=== PATIENT | female | born 1950 | race Caucasian/White ===

== ENCOUNTER 2017-03-09 09:46 | Outpatient (CLI) | payer MEDICARE, MEDICAID ==
[~2017-03-09 09:46] MED LIST: ALBU8HFA PO; FAMO40TA7 PO; FURO-150 PO; LORA1TAB PO; LOSA25TA96 PO; SPIR25TA3 PO
[2017-03-09] MEDS ORDERED: HYDR-569 PO (10:34)
[2017-03-09] MEDS ORDERED: silver sulfadiazine cream 50gm TP ONE (11:07)
== END 2017-03-09 11:18 | disposition home or self-care (01) ==
LOC: WOUND CARE 09:46 → EDSTATUS 10:00 → WOUND CARE 11:18
PROVIDERS: ATTEND Surgery
DX: L97.811 Non-pressure chronic ulcer of other part of right lower leg limited to breakdown of skin (principal); J44.9 Chronic obstructive pulmonary disease, unspecified; I10 Essential (primary) hypertension; E66.01 Morbid (severe) obesity due to excess calories; M17.10 Unilateral primary osteoarthritis, unspecified knee; F41.9 Anxiety disorder, unspecified; Z90.49 Acquired absence of other specified parts of digestive tract; Z86.018 Personal history of other benign neoplasm; Z68.44 Body mass index [BMI] 60.0-69.9, adult; Z79.899 Other long term (current) drug therapy; Z72.89 Other problems related to lifestyle; Z87.891 Personal history of nicotine dependence
CPT/HCPCS: 99215; A6222; A6446

== ENCOUNTER 2021-01-17 17:48 | Emergency (ER) | payer MEDICARE, MEDICAID ==
[~2021-01-17] VITALS: Ht 157.5 cm; Wt 168.2 kg
[~2021-01-17 17:48] MED LIST changes: +HYDR-4383 PO; -SPIR25TA3 PO; +SPIR25TA5 PO
[2021-01-17 18:14] VITALS: BP 137/79
[2021-01-17 18:41] LABS: CLARITY,URINE SLIGHTLY CLOUDY (Clear); COLOR,URINE YELLOW (Yellow); GLUCOSE, URINE NEGATIVE (Neg); KETONES,URINE NEGATIVE (Neg); LEUKOCYTE ESTERASE ,URINE NEGATIVE (Neg); NITRITES, URINE POSITIVE (Neg); OCCULT BLOOD,URINE NEGATIVE (Neg); PH,URINE 6.5 (4.8-8.0); PROTEIN,URINE TRACE mg/dl (Neg)
[2021-01-17 18:46] LABS: UA COLLECTION TYPE CLN CATCH MIDSTREAM
[2021-01-17 18:47] LABS: BACTERIA,URINE 4+ /HPF (Neg); MUCUS STRANDS FEW /LPF (Neg); RBC,URINE 0-2 /HPF (0-2); SQUAMOUS EPITHELIAL CELL,UR FEW /LPF (FEW)
[2021-01-17 18:48] LABS: WBC,URINE 0-4 /HPF (0-4)
[2021-01-17] MEDS ORDERED: SULF1TAB49 PO (18:48)
[2021-01-17] MEDS ORDERED: CIPR-202 PO (19:20)
== END 2021-01-17 20:44 | disposition home or self-care (01) ==
LOC: ER 17:48
DX: N39.0 Urinary tract infection, site not specified (principal); R30.9 Painful micturition, unspecified; R30.0 Dysuria; M54.89 Other dorsalgia; G89.29 Other chronic pain; I10 Essential (primary) hypertension; Z98.890 Other specified postprocedural states; Z56.0 Unemployment, unspecified; Z88.6 Allergy status to analgesic agent; Z88.8 Allergy status to other drugs, medicaments and biological substances; Z79.2 Long term (current) use of antibiotics; Z79.899 Other long term (current) drug therapy
CPT/HCPCS: 81001; 87077; 87088; 87186; 99283

== ENCOUNTER 2022-03-20 08:46 | Emergency (ER) | payer MEDICARE, MEDICAID ==
[~2022-03-20] VITALS: Ht 152.4 cm; Wt 181.8 kg
[2022-03-20 09:03] VITALS: BP 145/83
[2022-03-20] MEDS ORDERED: acetaminophen 325mg tablet PO ONE (10:15)
[2022-03-20 10:44] LABS: BASOPHILS % (AUTO) 0.3 % (0-1); EOSINOPHILS % (AUTO) 0 % (0-6); HEMATOCRIT 39.3 % (35.0-45.0); HEMOGLOBIN 12.5 g/dl (12.0-16.0); LYMPHOCYTES # (AUTO) 0.5 X10'3 (1.1-4.8); LYMPHOCYTES % (AUTO) 7.7 % (21-51); MEAN CORPUSCULAR HEMOGLOBIN 29.5 PG (27.0-31.0); MEAN CORPUSCULAR HGB CONC 31.9 g/dL (33.0-36.5); MEAN CORPUSCULAR VOLUME 92.7 FL (78-98); MEAN PLATELET VOLUME 9.4 FL (7.4-10.4); MONOCYTES # (AUTO) 0.2 X10'3 (0-0.9); MONOCYTES % (AUTO) 2.5 % (2-12); NEUTROPHILS # (AUTO) 6.3 X10'3 (1.8-7.7); NEUTROPHILS % (AUTO) 89.5 % (42-75); PLATELET COUNT 235 X10'3 (140-440); RED BLOOD COUNT 4.24 X10'6 (4.20-5.60); RED CELL DISTRIBUTION WIDTH 16.6 % (11.5-14.5)
[2022-03-20 11:02] LABS: ALANINE AMINOTRANSFERASE 32 U/L (12-78); ALBUMIN 2.8 G/DL (3.4-5.0); ALBUMIN/GLOBULIN RATIO 0.8 (1.1-1.5); ALKALINE PHOSPHATASE 59 IU/L (46-116); ANION GAP 7 (8-16); ASPARTATE AMINO TRANSFERASE 17 U/L (10-37); BILIRUBIN,TOTAL 0.8 MG/DL (0.1-1.0); BLOOD UREA NITROGEN 18 MG/DL (7-18); BUN/CREATININE RATIO 31.6 (6.6-38.0); CALCIUM 9.2 MG/DL (8.5-10.1); CHLORIDE 103 MMOL/L (99-107); CREATININE 0.57 MG/DL (0.40-0.90); GLUCOSE 128 MG/DL (70-104); POTASSIUM 3.6 MMOL/L (3.5-5.1); SODIUM 139 MMOL/L (135-145); TOTAL CARBON DIOXIDE 29.1 MMOL/L (24-32); TOTAL PROTEIN 6.2 G/DL (6.4-8.2); eGFR > 90 ML/MIN
[2022-03-20 11:06] LABS: MAGNESIUM 2.1 MG/DL (1.5-2.4)
--- NOTE | 2022-03-20 14:14 | NUR ---
Asked by ER MD to speak w/ pt and her family regarding possible SNF placement. Attempted to speak w/ pt (only person in the room) however she would not wake up for me. Spoke w/ pt's RN Carrie and made her aware that I wasn't able to speak w/ her but I would order some H/H and family should reach out to pt's PMD at [facility] for help w/ placement. Later I rec'd a call from ER charge authorizer asking for help arranging a gurney transport home for this pt. Called [facility] and spoke w/ Charisse, they can assist us w/ estimated fish bait picker time of between 1630 and 1700. Medical necessity form completed and given to Carrie VÁSQUEZ. Will continue to monitor.
== END 2022-03-20 18:48 | disposition home or self-care (01) ==
LOC: ER 08:46
DX: E66.01 Morbid (severe) obesity due to excess calories (principal); M25.569 Pain in unspecified knee; I10 Essential (primary) hypertension; G89.29 Other chronic pain; Z98.890 Other specified postprocedural states; Z56.0 Unemployment, unspecified; Z88.6 Allergy status to analgesic agent; Z88.8 Allergy status to other drugs, medicaments and biological substances; Z79.899 Other long term (current) drug therapy
CPT/HCPCS: 36415; 80053; 83735; 84484; 85025; 99283

== ENCOUNTER 2022-05-10 19:53 | Inpatient (IN) | payer MEDICARE, MEDICAID ==
[~2022-05-10] VITALS: Ht 157.5 cm; Wt 139.1 kg
[2022-05-10 20:48] LABS: BASOPHILS % (AUTO) 0.1 % (0-1); EOSINOPHILS # (AUTO) 0.1 X10'3 (0-0.9); EOSINOPHILS % (AUTO) 0.6 % (0-6); HEMATOCRIT 34.5 % (35.0-45.0); HEMOGLOBIN 11.4 g/dl (12.0-16.0); LYMPHOCYTES # (AUTO) 0.7 X10'3 (1.1-4.8); LYMPHOCYTES % (AUTO) 8.2 % (21-51); MEAN CORPUSCULAR HEMOGLOBIN 32.3 PG (27.0-31.0); MEAN CORPUSCULAR HGB CONC 32.9 g/dL (33.0-36.5); MEAN PLATELET VOLUME 8.1 FL (7.4-10.4); MONOCYTES # (AUTO) 0.5 X10'3 (0-0.9); MONOCYTES % (AUTO) 5.1 % (2-12); NEUTROPHILS # (AUTO) 7.7 X10'3 (1.8-7.7); PLATELET COUNT 264 X10'3 (140-440); RED BLOOD COUNT 3.52 X10'6 (4.20-5.60); RED CELL DISTRIBUTION WIDTH 16.3 % (11.5-14.5)
[2022-05-10] MEDS ORDERED: morphine 4 MG/ML inj SYRINge IV ONE (20:55)
[2022-05-10] MEDS ORDERED: ondansetron/PF 4mg/2ml inj IV ONE (20:55)
[2022-05-10] MEDS ORDERED: temazepam 15mg capsule PO PRN (21:00)
[2022-05-10] MEDS ORDERED: iohexol 300mg/ml 100ml inj. ONE (21:03)
[2022-05-10 21:04] LABS: ALANINE AMINOTRANSFERASE 25 U/L (12-78); ALBUMIN 2.6 G/DL (3.4-5.0); ALKALINE PHOSPHATASE 61 IU/L (46-116); ANION GAP 6 (8-16); ASPARTATE AMINO TRANSFERASE 20 U/L (10-37); BILIRUBIN,TOTAL 0.9 MG/DL (0.1-1.0); BLOOD UREA NITROGEN 19 MG/DL (7-18); CALCIUM 8.2 MG/DL (8.5-10.1); CHLORIDE 101 MMOL/L (99-107); GLUCOSE 87 MG/DL (70-104); POTASSIUM 3.6 MMOL/L (3.5-5.1); SODIUM 137 MMOL/L (135-145); TOTAL CARBON DIOXIDE 29.9 MMOL/L (24-32); TOTAL PROTEIN 5.2 G/DL (6.4-8.2); eGFR > 90 ML/MIN
--- NOTE | 2022-05-10 21:33 | NUR ---
Pt to CT
[2022-05-10] MEDS ORDERED: LORazepam 2 mg/ml vial IV ONE (22:35)
[2022-05-10] MEDS ORDERED: LIDOcaine Viscous 15ml cup MM ONE (22:45)
[2022-05-10] MEDS ORDERED: ondansetron 4mg rapidly disintigrating tab PO PRN (23:25)
[2022-05-10] MEDS ORDERED: magnesium hydroxide 30ml (MOM) UD suspension PO PRN (23:25)
[2022-05-10] MEDS ORDERED: HYDROcodone/acetaminophen 5mg/325mg tablet PO PRN (23:25)
[2022-05-10] MEDS ORDERED: acetaminophen 325mg tablet PO PRN ×2 (23:25)
[2022-05-10] MEDS ORDERED: acetaminophen 650mg rectal suppository RC PRN (23:25)
[2022-05-10] MEDS ORDERED: bisacodyl 10mg suppository rectal RC PRN (23:25)
[2022-05-10] MEDS ORDERED: diphenhydrAMINE 25mg capsule PO PRN (23:25)
[2022-05-10] MEDS ORDERED: ondansetron/PF 4mg/2ml inj IV PRN (23:25)
[2022-05-10] MEDS ORDERED: mag hydrox/Alum hydrox/simeth 30ml oral suspension PO PRN (23:25)
[2022-05-10] MEDS ORDERED: HYDROcodone/acetaminophen 10/325mg tab PO PRN (23:25)
[2022-05-10] MEDS ORDERED: morphine 2 MG/ML inj. syringe IV PRN ×2 (23:25)
[2022-05-10] MEDS ORDERED: diphenhydrAMINE 50 mg/ml inj IV PRN (23:25)
--- NOTE | 2022-05-10 23:30 | NUR ---
NG tube placed by MD after two failed attempts by nursing.
[2022-05-10 23:59] LABS: HEMOGLOBIN A1C 4.7 % (4.5-6.2)
[2022-05-11] VITALS (26 sets, daily range): BP systolic 76–188; BP diastolic 41–82
[2022-05-11] MEDS ORDERED: morphine 4 MG/ML inj SYRINge IV ONE
[2022-05-11 00:07] LABS: APTT 24 SECONDS (22-32)
[2022-05-11 00:18] LABS: CREATINE KINASE 28 U/L (26-192); LIPASE 140 U/L (73-393); MAGNESIUM 2.4 MG/DL (1.5-2.4); PHOSPHORUS 3.5 MG/DL (2.3-4.5)
[2022-05-11] MEDS ORDERED: PANT40TA54 PO (00:32)
[2022-05-11] MEDS ORDERED: POLY119P2 PO (00:32)
[2022-05-11] MEDS ORDERED: APIX5TAB3 PO (00:32)
[2022-05-11] MEDS ORDERED: NYSPWD TOP (00:32)
[2022-05-11] MEDS ORDERED: DILT300C53 PO (00:32)
[2022-05-11] MEDS ORDERED: UMEC1DIS INH (00:39)
[2022-05-11] MEDS: normal saline 1000ml 1,000 ML IV SCH ×3 (02:11→19:25)
[2022-05-11] MEDS ORDERED: albuterol 2.5 MG/3 ML nebule NEB PRN (03:55)
[2022-05-11] MEDS ORDERED: LORazepam 1 MG tablet PO PRN (03:55)
[2022-05-11] MEDS ORDERED: HYDROcodone/acetaminophen 5mg/325mg tablet PO PRN (03:55)
--- NOTE | 2022-05-11 06:48 | NUR ---
Patient in room ORTHO 4020. I have received report from GALINA VÁSQUEZ and had the opportunity to ask questions and assume patient care.
[2022-05-11 07:23] LABS: BASOPHILS % (AUTO) 0 % (0-1); EOSINOPHILS % (AUTO) 0.1 % (0-6); HEMATOCRIT 30.7 % (35.0-45.0); LYMPHOCYTES # (AUTO) 0.5 X10'3 (1.1-4.8); LYMPHOCYTES % (AUTO) 6.4 % (21-51); MEAN CORPUSCULAR HEMOGLOBIN 32.1 PG (27.0-31.0); MEAN CORPUSCULAR HGB CONC 32.7 g/dL (33.0-36.5); MEAN CORPUSCULAR VOLUME 98.1 FL (78-98); MEAN PLATELET VOLUME 8.3 FL (7.4-10.4); MONOCYTES # (AUTO) 0.1 X10'3 (0-0.9); MONOCYTES % (AUTO) 1.9 % (2-12); NEUTROPHILS # (AUTO) 6.8 X10'3 (1.8-7.7); NEUTROPHILS % (AUTO) 91.6 % (42-75); PLATELET COUNT 235 X10'3 (140-440); RED BLOOD COUNT 3.13 X10'6 (4.20-5.60); RED CELL DISTRIBUTION WIDTH 16.3 % (11.5-14.5); WHITE BLOOD COUNT 7.4 X10'3 (4.5-11.0)
[2022-05-11 07:30] LABS: ALANINE AMINOTRANSFERASE 26 U/L (12-78); ALBUMIN 2.4 G/DL (3.4-5.0); ALKALINE PHOSPHATASE 58 IU/L (46-116); ANION GAP 7 (8-16); ASPARTATE AMINO TRANSFERASE 17 U/L (10-37); BILIRUBIN,TOTAL 0.7 MG/DL (0.1-1.0); BLOOD UREA NITROGEN 18 MG/DL (7-18); BUN/CREATININE RATIO 41.9 (10.0-20.0); CALCIUM 8.1 MG/DL (8.5-10.1); CHLORIDE 104 MMOL/L (99-107); CHOL/HDL RATIO 1.8 (0.00-4.99); CHOLESTEROL 135 MG/DL (0-200); CREATININE 0.43 MG/DL (0.40-0.90); GLUCOSE 100 MG/DL (70-104); HDL CHOLESTEROL 75 MG/DL (35-60); LDL CHOLESTEROL 50 MG/DL (50-100); POTASSIUM 3.4 MMOL/L (3.5-5.1); SODIUM 140 MMOL/L (135-145); TOTAL CARBON DIOXIDE 29.3 MMOL/L (24-32); TOTAL PROTEIN 4.7 G/DL (6.4-8.2); TRIGLYCERIDES 48 MG/DL (20-135); eGFR > 90 ML/MIN
[2022-05-11] MEDS ORDERED: pantoprazole 40mg IV 80 MG in normal saline 100ml IV soln 100 ML IV SCH (08:00)
[2022-05-11] MEDS: losartan 25mg tablet PO SCH (08:00)
[2022-05-11] MEDS ORDERED: docusate sod 100mg capsule PO SCH (08:00)
[2022-05-11] MEDS: nystatin 15 GM powder TP SCH ×3 (08:00→21:17)
[2022-05-11] MEDS: diltiazem CD 120mg capsule (once-daily) PO SCH (08:00)
[2022-05-11] MEDS: spironolactone 25 MG tablet PO SCH (08:00)
[2022-05-11] MEDS: diltiazem CD 180mg cap (once-daily) PO SCH (08:00)
[2022-05-11] MEDS: ipratropium/albuterol 3ml nebule NEB SCH ×3 (08:06→20:59)
[2022-05-11] MEDS: budesonide 0.5mg/2ml UD nebule IH SCH ×2 (08:06→20:59)
--- NOTE | 2022-05-11 08:44 | NUR ---
PER DR FELDMAN, HE JUST CAME AND CONSULTED THE PT SHE WILL BE GOING TO SURGERY TODAY AROUND 11 AM, I ASKED ABOUT MEDS TO GIVEN HE SAID TO GIVE THE CARDIZEM SR AND HOLD THE REST OF MEDS FOR PROCEDURE. HER K WAS 3.4 HE WANTS TO REPLACE THAT WITH A 30 BAG OF K OVER 3 HRS.
[2022-05-11] MEDS ORDERED: magnesium 4gm in 100ml NS 100 ML IV PRN ×2 (09:45→17:40)
[2022-05-11] MEDS ORDERED: magnesium Cl slow-release 64mg tablet PO PRN (09:45)
[2022-05-11] MEDS ORDERED: potassium Cl 40MEQ/1/2NS 520ml 520 ML IV PRN (09:45)
--- NOTE | 2022-05-11 09:47 | NUR ---
PER PHARMACIST WE DONT DO THE 30 BAG OF K WE ONLY DO THE 40 BAG OVER 4 HRS. PUT IN PER PROTOCOL.
[2022-05-11] MEDS ORDERED: potassium Cl 40MEQ/1/2NS 520ml 520 ML IV ONE (10:00)
--- NOTE | 2022-05-11 10:01 | NUR ---
SURGERY CAME TO GET PT EARLY STATED "I WAS JUST GOING TO DO HER PRE OP CHECKLIST, BS, AND GET HER READY FOR SURGERY", THEY SAID GASTON WANTED TO DO THE SURGERY EARLIER, I INFORMED THEM SHE NEEDED HER K REPLACED AND THAT SHE DID NOT GET HER CARDIZEM THERE WAS A MIX UP TRYING TO FIGURE OUT WHAT WAS SR OR NOT BECAUSE DR FELDMAN DIDN'T WANT HER TO TAKE BOTH THE DOSES. I DID INFORM JOSSIE ABOUT THIS AND HE SAID DON'T WORRY ABOUT IT SINCE SHE WAS GOING FOR SURGERY RIGHT NOW BEFORE I COULD CALL DR FELDMAN. I DID INFORM THE PRE OP THAT CAME AND GOT HER ABOUT THIS. WILL CALL REPORT. Addendum: 05/11/22 at 1051 by Emery Sarah RN SURGERY CAME TO GET PT EARLY STATED "I WAS JUST GOING TO DO HER PRE OP CHECKLIST, BS, AND GET HER READY FOR SURGERY", THEY SAID GASTON WANTED TO DO THE SURGERY EARLIER SO THEY STATED "NOT TO WORRY AND THEY CAN DO THAT ALL DOWN IN OR", I INFORMED THEM SHE NEEDED HER K REPLACED AND THAT SHE DID NOT GET HER CARDIZEM THERE WAS A MIX UP TRYING TO FIGURE OUT WHAT WAS SR OR NOT BECAUSE DR FELDMAN DIDN'T WANT HER TO TAKE BOTH THE DOSES. I DID INFORM JOSSIE ABOUT THIS AND HE SAID DON'T WORRY ABOUT IT SINCE SHE WAS GOING FOR SURGERY RIGHT NOW BEFORE I COULD CALL DR FELDMAN AND THAT MED CANT BE CRUSHED. I DID INFORM THE PRE OP THAT CAME AND GOT HER ABOUT THIS. WILL CALL REPORT.
[2022-05-11] MEDS ORDERED: fentaNYL /PF 50mcg/ml 5ml ampule ONE (10:20)
[2022-05-11] MEDS ORDERED: MIDAZolam 1 MG/ML 5ML VIAL ONE (10:20)
[2022-05-11] MEDS ORDERED: sevoflurane 250ml liquid IH ONE (10:21)
--- NOTE | 2022-05-11 10:49 | NUR ---
TRIED TO CALL REPORT ON PT AND RECOVERY IS NOT ANSWERING. WILL ATTEMPT LATER
--- NOTE | 2022-05-11 11:03 | NUR ---
Problems reprioritized. Patient report given, questions answered & plan of care reviewed with LIZZ VÁSQUEZ IN RECOVERY.
[2022-05-11] MEDS ORDERED: propofol inj 20 ML IV ONE (11:08)
[2022-05-11] MEDS ORDERED: rocuronium 10mg/ml inj IV ONE (11:08)
[2022-05-11] MEDS ORDERED: ceFOXitin 1000 MG inj ONE (11:13)
[2022-05-11] MEDS ORDERED: fentaNYL/PF 50MCG/1 ML 2ML syringe IV PRN (12:00)
--- NOTE | 2022-05-11 12:45 | NUR ---
Received from OR via , accompanied by Anesthesiologist DR TAFOYA and report given by Anesthesiolgist. PT IS SEDATED, INTUBATED, SIMV, RATE 12, PEEP 5, CASAS TO GRAVITY CLEAR YELLOW, RIGHT IJ TLC, RIGHT WRIST ART LINE, NG RIGHT NARE TO LOW CONT, ISLAND DRESSING CD TO LEFT ABD.
[2022-05-11] MEDS: propofol 1000mg/100ml bottle 100 ML IV SCH ×3 (13:00→21:41)
[2022-05-11] MEDS: FENTANYL-0.9 % NACL/PF 100 ML IV PRN (13:11)
[2022-05-11 13:15] LABS: ABG BASE EXCESS -0.8 mmol/L (-2.0-2.0); ABG HCO3 23.3 mmol/L (22.0-26.0); ABG OXYGEN SATURATION 98.9 % (94-97); ABG PCO2 (T) 35.8 mmHg (32.0-45.0); ABG PO2 (T) 299.6 mmHg (75.0-100.0); FCOHb 0.1 % (0.0-3.9); FMetHb 0.3 % (0.0-1.5); FO2Hb 98.5 % (94-97); PATIENT TEMPERATURE 36.7; PEEP 5 cm H2O; RESPIRATORY RATE 12 b/min; TIDAL VOLUME 500 mL; TOTAL HEMOGLOBIN 10.9 G/dl (12.0-16.0)
--- NOTE | 2022-05-11 13:28 | NUR ---
Report called to receiving nurse. PT RECOVERED IN ICU 2015 Belongings . Special Issues communicated to receiving nurse ANETA VÁSQUEZ. PT IS SEDATED AND SLEEPING. BP AND HR WERE INCREASED, RN ADJUSTED TRANSDUCER AND VSS STABLAIZED. RT MAINTAING VENT SETTINGS, CASAS TO GRAVITY, LEFT AC SL, RIGHT IJ HAS FLUIDS RUNNING, NG TUBE TO LIS. ISLAND DRESSING LEFT ABD CD, PT MEETS DISCHARGE CRITEREA.
--- NOTE | 2022-05-11 13:50 | NUR ---
assumed care of pt from PACU RNs.
--- NOTE | 2022-05-11 14:53 | NUR ---
FI02 reduced to 40%
--- NOTE | 2022-05-11 15:08 | NUR ---
pt moving lower extremities, but does not follow commands. pt opens her eyes briefly when her name is called
[2022-05-11] MEDS ORDERED: normal saline 1000ml 1,000 ML IV ONE (16:55)
[2022-05-11] MEDS ORDERED: magnesium 2GM in 50ml NS 50 ML IV PRN (17:40)
[2022-05-11] MEDS ORDERED: potassium Cl 40MEQ/270ML bag 270 ML IV PRN (17:40)
[2022-05-11] MEDS ORDERED: potassium Cl 40MEQ/270ML bag 270 ML IV ONE (17:40)
--- NOTE | 2022-05-11 18:21 | NUR ---
Problems reprioritized. Patient report given, questions answered & plan of care reviewed with Chele VÁSQUEZ.
--- NOTE | 2022-05-11 18:30 | NUR ---
Patient in room CICU 2014. I have received report from Alexandria VÁSQUEZ and had the opportunity to ask questions and assume patient care.
[2022-05-11] MEDS: NORepinephrine 8mg/ 250ml NS 250 ML IV PRN ×3 (18:44→23:35)
--- NOTE | 2022-05-11 19:30 | NUR ---
Pt's BP was Addendum: 05/11/22 at 2148 by Raghavendra Harp RN Pt's bp was soft so provider was notified and order for fluid bolus and levo was ordered at 1930. Pt is also in rapid Afib and has bouts of 160-180 HR before dropping back down to 130's, providers was notified again and Amio was started. Labs are in process for continued unstable HR
[2022-05-11] MEDS ORDERED: amiodarone 150mg/dext, iso-os 100 ML IV ONE (19:50)
[2022-05-11] MEDS: amiodarone/D5 360MG/200ML BAG 200 ML IV SCH (19:59)
[2022-05-11] MEDS: K and/or MAG REPLACEMENT MC SCH (20:00)
[2022-05-11] MEDS ORDERED: docusate sodium 100mg/10ml UD cup OGT SCH (20:28)
[2022-05-11 21:50] LABS: HEMATOCRIT 33.7 % (35.0-45.0); MEAN CORPUSCULAR HEMOGLOBIN 32.2 PG (27.0-31.0); MEAN CORPUSCULAR HGB CONC 32.7 g/dL (33.0-36.5); MEAN CORPUSCULAR VOLUME 98.6 FL (78-98); MEAN PLATELET VOLUME 8.7 FL (7.4-10.4); PLATELET COUNT 327 X10'3 (140-440); RED BLOOD COUNT 3.42 X10'6 (4.20-5.60); RED CELL DISTRIBUTION WIDTH 16.5 % (11.5-14.5); WHITE BLOOD COUNT 3.1 X10'3 (4.5-11.0)
[2022-05-11 21:52] LABS: ALBUMIN 2.1 G/DL (3.4-5.0); ANION GAP 13 (8-16); BLOOD UREA NITROGEN 17 MG/DL (7-18); BUN/CREATININE RATIO 26.2 (10.0-20.0); CHLORIDE 106 MMOL/L (99-107); CREATININE 0.65 MG/DL (0.40-0.90); GLUCOSE 236 MG/DL (70-104); MAGNESIUM 2.1 MG/DL (1.5-2.4); POTASSIUM 4.3 MMOL/L (3.5-5.1); SODIUM 140 MMOL/L (135-145); eGFR 90 ML/MIN
[2022-05-11] MEDS ORDERED: digoxin 250mcg/ml 2ml ampule IV ONE (22:15)
[2022-05-11] MEDS ORDERED: diltiazem-NS 100mg/100ml 100 ML IV SCH (22:15)
[2022-05-11] MEDS ORDERED: digoxin 250mcg/ml 2ml ampule ONE (22:23)
[2022-05-12] VITALS (34 sets, daily range): BP systolic 79–154; BP diastolic 39–93
[2022-05-12] MEDS: amiodarone/D5 360MG/200ML BAG 200 ML IV SCH ×4 (02:01→20:06)
[2022-05-12 02:38] LABS: BASOPHILS % (AUTO) 0.1 % (0-1); EOSINOPHILS % (AUTO) 0.5 % (0-6); HEMATOCRIT 37.6 % (35.0-45.0); HEMOGLOBIN 11.5 g/dl (12.0-16.0); LYMPHOCYTES # (AUTO) 1.2 X10'3 (1.1-4.8); LYMPHOCYTES % (AUTO) 16.9 % (21-51); MEAN CORPUSCULAR HEMOGLOBIN 32.2 PG (27.0-31.0); MEAN CORPUSCULAR HGB CONC 30.7 g/dL (33.0-36.5); MEAN CORPUSCULAR VOLUME 104.8 FL (78-98); MEAN PLATELET VOLUME 8.6 FL (7.4-10.4); MONOCYTES # (AUTO) 0.3 X10'3 (0-0.9); MONOCYTES % (AUTO) 3.5 % (2-12); NEUTROPHILS # (AUTO) 5.8 X10'3 (1.8-7.7); PLATELET COUNT 247 X10'3 (140-440); RED BLOOD COUNT 3.59 X10'6 (4.20-5.60); RED CELL DISTRIBUTION WIDTH 17.4 % (11.5-14.5); WHITE BLOOD COUNT 7.4 X10'3 (4.5-11.0)
[2022-05-12 02:47] LABS: ALANINE AMINOTRANSFERASE 243 U/L (12-78); ALBUMIN 1.9 G/DL (3.4-5.0); ALBUMIN/GLOBULIN RATIO 0.8 (1.1-1.5); ALKALINE PHOSPHATASE 67 IU/L (46-116); ANION GAP 20 (8-16); ASPARTATE AMINO TRANSFERASE 301 U/L (10-37); BILIRUBIN,TOTAL 0.9 MG/DL (0.1-1.0); BLOOD UREA NITROGEN 18 MG/DL (7-18); BUN/CREATININE RATIO 14.1 (10.0-20.0); CALCIUM 7.7 MG/DL (8.5-10.1); CHLORIDE 108 MMOL/L (99-107); CREATININE 1.28 MG/DL (0.40-0.90); GLUCOSE 134 MG/DL (70-104); MAGNESIUM 2.6 MG/DL (1.5-2.4); POTASSIUM 5.1 MMOL/L (3.5-5.1); SODIUM 140 MMOL/L (135-145); TOTAL PROTEIN 4.3 G/DL (6.4-8.2); TRIGLYCERIDES 256 MG/DL (20-135); eGFR 41 ML/MIN
[2022-05-12 02:53] LABS: TOTAL CARBON DIOXIDE 12.2 MMOL/L (24-32)
[2022-05-12 03:12] LABS: ABG BASE EXCESS -20.4 mmol/L (-2.0-2.0); ABG HCO3 6.6 mmol/L (22.0-26.0); ABG OXYGEN SATURATION 97.1 % (94-97); ABG PCO2 (T) 20.4 mmHg (32.0-45.0); ABG PO2 (T) 125.1 mmHg (75.0-100.0); FCOHb 0.4 % (0.0-3.9); FMetHb 0.3 % (0.0-1.5); FO2Hb 96.4 % (94-97); PATIENT TEMPERATURE 37.9; PEEP 5 cm H2O; RESPIRATORY RATE 12 b/min; TIDAL VOLUME 500 mL; TOTAL HEMOGLOBIN 11.8 G/dl (12.0-16.0)
[2022-05-12] MEDS ORDERED: sodium bicarbonate (8.4%) 1 mEq/ml syringe IV ONE (03:25)
[2022-05-12] MEDS ORDERED: SODIUM BICARBONATE IV SCH (03:25)
[2022-05-12] MEDS ORDERED: [UNRECOGNIZED DRUG - OTHER] IV SCH (03:25)
[2022-05-12] MEDS ORDERED: SODIUM BICARB IV SCH (03:25)
[2022-05-12] MEDS: FENTANYL-0.9 % NACL/PF 100 ML IV PRN (03:34)
[2022-05-12] MEDS: NORepinephrine 32 MG in Normal Saline 250ml IV soln IV PRN ×4 (03:34→16:06)
[2022-05-12 04:55] LABS: NUCLEATED RED BLOOD CELLS 3 /100WBC (0-0); TOTAL CELLS COUNTED 100
[2022-05-12 04:56] LABS: ANISOCYTOSIS 1+; PLATELET ESTIMATE NORMAL
[2022-05-12 04:58] LABS: LARGE PLATELETS FEW
[2022-05-12 04:59] LABS: BURR CELLS FEW
[2022-05-12] MEDS: propofol 1000mg/100ml bottle 100 ML IV SCH ×2 (04:59→15:05)
[2022-05-12] MEDS: normal saline 1000ml 1,000 ML IV SCH (05:25)
--- NOTE | 2022-05-12 06:00 | NUR ---
Patient in room CICU 2011. I have received report from Chele VÁSQUEZ and had the opportunity to ask questions and assume patient care.
--- NOTE | 2022-05-12 07:00 | NUR ---
Dr. Kelly at bedside informed of change in condition over night--afib with RVR in 190s, amio started, digoxin given, urine output decreased to 10ml/hr, bicarb drip started, CO2 decreased, PH 7.1 on ABG. ordered STAT lactic and emergency laparotomy.
[2022-05-12] MEDS ORDERED: NORepinephrine 1 mg/ml inj IV ONE (07:15)
[2022-05-12] MEDS ORDERED: albumin (Human) 5% 250ml 750 ML IV ONE (07:16)
[2022-05-12] MEDS ORDERED: rocuronium 10mg/ml inj IV ONE (07:18)
[2022-05-12] MEDS ORDERED: vasopressin inj. 40 UNIT in dextrose 5%-water 50ml 38 ML IV SCH (07:25)
[2022-05-12] MEDS ORDERED: sevoflurane 250ml liquid IH ONE (07:30)
[2022-05-12] MEDS ORDERED: albumin (Human) 5% 250ml 250 ML IV ONE ×4 (07:49)
[2022-05-12] MEDS: losartan 25mg tablet PO SCH (08:00)
[2022-05-12] MEDS ORDERED: K and/or MAG REPLACEMENT MC SCH (08:00)
[2022-05-12] MEDS: diltiazem CD 180mg cap (once-daily) PO SCH (08:00)
[2022-05-12] MEDS ORDERED: digoxin 250mcg/ml 2ml ampule IV SCH (08:00)
[2022-05-12] MEDS: spironolactone 25 MG tablet PO SCH (08:00)
[2022-05-12] MEDS: diltiazem CD 120mg capsule (once-daily) PO SCH (08:00)
[2022-05-12] MEDS: nystatin 15 GM powder TP SCH ×3 (08:00→21:04)
[2022-05-12] MEDS: K and/or MAG REPLACEMENT MC SCH ×2 (08:00→20:00)
--- NOTE | 2022-05-12 08:00 | NUR ---
Informed family in person of pts change in condition. Dr. Kelly spoke with daughter Lyric for surgery consent and updated family.
[2022-05-12] MEDS: ipratropium/albuterol 3ml nebule NEB SCH ×3 (08:09→21:10)
[2022-05-12] MEDS: budesonide 0.5mg/2ml UD nebule IH SCH ×2 (08:09→21:10)
[2022-05-12] MEDS: vasopressin inj. 40 UNIT in normal saline 50ml IV soln 38 ML IV SCH (08:09)
[2022-05-12 09:30] LABS: ABG BASE EXCESS -22.3 mmol/L (-2.0-2.0); ABG HCO3 8.1 mmol/L (22.0-26.0); ABG OXYGEN SATURATION 91.3 % (94-97); ABG PCO2 (T) 33.6 mmHg (32.0-45.0); ABG PO2 (T) 75.7 mmHg (75.0-100.0); FCOHb 0.2 % (0.0-3.9); FMetHb 0.3 % (0.0-1.5); FO2Hb 90.8 % (94-97); PATIENT TEMPERATURE 36.3; PEEP 5 cm H2O; RESPIRATORY RATE 12 b/min; TIDAL VOLUME 500 mL; TOTAL HEMOGLOBIN 10.8 G/dl (12.0-16.0)
[2022-05-12] MEDS ORDERED: albumin (human) 25% 100 ML IV solution IV ONE (10:25)
[2022-05-12] MEDS: pantoprazole 40mg IV 40 MG in normal saline 100ml IV soln 100 ML IV SCH (10:33)
[2022-05-12] MEDS: SODIUM BICARBONATE IV SCH ×4 (10:42→23:57)
[2022-05-12] MEDS: [UNRECOGNIZED DRUG - OTHER] IV SCH ×4 (10:42→23:57)
[2022-05-12] MEDS: SODIUM BICARB IV SCH ×4 (10:42→23:57)
[2022-05-12] MEDS ORDERED: VANCOmycin 2,000MG in NS 500ml IV soln IV ONE (11:30)
[2022-05-12] MEDS ORDERED: LORazepam 1 MG tablet NG PRN (11:33)
[2022-05-12] MEDS ORDERED: mag hydrox/Alum hydrox/simeth 30ml oral suspension NG PRN (11:34)
[2022-05-12] MEDS ORDERED: magnesium hydroxide 30ml (MOM) UD suspension NG PRN (11:35)
--- NOTE | 2022-05-12 11:39 | NUR ---
Malnutrition Consult: Pt intubated admit DX incarcerated recurrent abdominal hernia and SBO s/p OR yesterday for hernia repair then return to OR this AM for worsening lactic acid w/ ~1 foot of bowel resected per RN at rounds. Concern for possible sepsis per program manager slp pending cultures. Pt remains NPO MAP 77 w/ NG in place to suction currently on Propofol at 14.278ml/hr providing 377 kcals/day and Na-bicarb/D5W at 150ml/hr providing 612 kcals/day. Abdomen surgical site w/ wound vac in place pending return to OR tomorrow for possible wound closure per CCR. 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 Lack of scaled wt hx at this time though pt w/ mild weakness and edema on admit currently lacks minimum malnutrition criteria. LBM 05/11 received first dose of routine colace last night per EMR. If concern for GI integrity post-op would benefit from PN to meet nutrition needs. Will monitor for further nutrition intervention needs this admit. Rec: 1. IF concern for GI integrity consider PN to meet nutrition needs; monitor Propofol and Na-bicarb/D5W provision for PN recs 2. IF TF and Propofol/Na-bicarb w/ D5W weaned; Vital HP at 65ml/hr 3. IF EN/PN; PALB Q / 4. bowel care per MD post-op 5. daily scaled wts 6. upon extubation; advance diet as medically indicated to low-fiber Addendum: 05/12/22 at [address] Amended: Links added.
[2022-05-12 13:49] LABS: MEAN PLATELET VOLUME 8.9 FL (7.4-10.4); MONOCYTES # (AUTO) 0.1 X10'3 (0-0.9)
[2022-05-12 13:51] LABS: BASOPHILS % (AUTO) 0.1 % (0-1); EOSINOPHILS % (AUTO) 0.7 % (0-6); HEMATOCRIT 29.6 % (35.0-45.0); HEMOGLOBIN 9.3 g/dl (12.0-16.0); LYMPHOCYTES # (AUTO) 0.8 X10'3 (1.1-4.8); MEAN CORPUSCULAR HEMOGLOBIN 31.1 PG (27.0-31.0); MEAN CORPUSCULAR HGB CONC 31.5 g/dL (33.0-36.5); MEAN CORPUSCULAR VOLUME 98.8 FL (78-98); MONOCYTES % (AUTO) 2.8 % (2-12); NEUTROPHILS # (AUTO) 2.8 X10'3 (1.8-7.7); NEUTROPHILS % (AUTO) 74.4 % (42-75); RED BLOOD COUNT 2.99 X10'6 (4.20-5.60); RED CELL DISTRIBUTION WIDTH 19.5 % (11.5-14.5); WHITE BLOOD COUNT 3.7 X10'3 (4.5-11.0)
[2022-05-12] MEDS: albumin (Human) 5% 250ml 250 ML IV SCH ×5 (13:53→23:58)
[2022-05-12] MEDS ORDERED: mineral oil/petrolatum ophthal oint EACHEYE SCH (14:00)
--- NOTE | 2022-05-12 14:10 | NUR ---
WOC note, per medical records, this is a 71-year-old female brought in by EMS from home with report of left-sided abdominal pain. She had emergent surgery with Dr. Riggs early this morning for excision of mesh, lysis of adhesions and repair of incarcerated recurrent abdominal wall hernia containing bowel. The patient presents in the CICU, intubated and sedated. Per surgeons notes she will be having another surgery tomorrow. The NTPW has good suction noted. WOC will follow the patient and provide NPWT dressing changes once she is released by the surgeon.
[2022-05-12 15:16] LABS: LARGE PLATELETS MODERATE; PLATELET ESTIMATE DECREASED
[2022-05-12 15:17] LABS: ANISOCYTOSIS 2+; BURR CELLS 1+
[2022-05-12 15:22] LABS: PLATELET COUNT 99 X10'3 (140-440)
[2022-05-12 16:16] LABS: ALBUMIN 3.3 G/DL (3.4-5.0); ALBUMIN/GLOBULIN RATIO 3.3 (1.1-1.5); ALKALINE PHOSPHATASE 100 IU/L (46-116); ANION GAP 21 (8-16); BILIRUBIN,TOTAL 2.6 MG/DL (0.1-1.0); BLOOD UREA NITROGEN 25 MG/DL (7-18); BUN/CREATININE RATIO 18.2 (10.0-20.0); CALCIUM 6.8 MG/DL (8.5-10.1); CHLORIDE 106 MMOL/L (99-107); CREATININE 1.37 MG/DL (0.40-0.90); GLUCOSE 143 MG/DL (70-104); MAGNESIUM 2.1 MG/DL (1.5-2.4); PHOSPHORUS 7.2 MG/DL (2.3-4.5); POTASSIUM 4.5 MMOL/L (3.5-5.1); SODIUM 143 MMOL/L (135-145); TOTAL CARBON DIOXIDE 16.5 MMOL/L (24-32); TOTAL PROTEIN 4.3 G/DL (6.4-8.2); eGFR 38 ML/MIN
[2022-05-12 17:00] LABS: ALANINE AMINOTRANSFERASE 4357 U/L (12-78)
[2022-05-12 17:01] LABS: ASPARTATE AMINO TRANSFERASE > 7000 U/L (10-37)
[2022-05-12] MEDS: piperacillin/tazo 3.375gm/50ml 50 ML IV SCH (17:08)
--- NOTE | 2022-05-12 18:27 | NUR ---
Problems reprioritized. Patient report given, questions answered & plan of care reviewed with Raghavendra VÁSQUEZ.
[2022-05-12] MEDS: docusate sodium 100mg/10ml UD cup NG SCH (20:00)
[2022-05-12 20:50] LABS: HEMATOCRIT 24.2 % (35.0-45.0); MEAN CORPUSCULAR HGB CONC 33.2 g/dL (33.0-36.5)
[2022-05-12 20:52] LABS: BASOPHILS % (AUTO) 0.1 % (0-1); EOSINOPHILS % (AUTO) 0.4 % (0-6); LYMPHOCYTES # (AUTO) 0.5 X10'3 (1.1-4.8); MEAN CORPUSCULAR HEMOGLOBIN 31.3 PG (27.0-31.0); MEAN CORPUSCULAR VOLUME 94.1 FL (78-98); MEAN PLATELET VOLUME 8.9 FL (7.4-10.4); MONOCYTES # (AUTO) 0.1 X10'3 (0-0.9); MONOCYTES % (AUTO) 1.7 % (2-12); NEUTROPHILS # (AUTO) 2.3 X10'3 (1.8-7.7); NEUTROPHILS % (AUTO) 81.8 % (42-75); PLATELET COUNT 72 X10'3 (140-440); RED BLOOD COUNT 2.57 X10'6 (4.20-5.60); RED CELL DISTRIBUTION WIDTH 18.3 % (11.5-14.5); WHITE BLOOD COUNT 2.9 X10'3 (4.5-11.0)
[2022-05-12 21:04] LABS: ABG BASE EXCESS -4.6 mmol/L (-2.0-2.0); ABG HCO3 19.3 mmol/L (22.0-26.0); ABG OXYGEN SATURATION 93.2 % (94-97); ABG PCO2 (T) 31.6 mmHg (32.0-45.0); FCOHb 1.3 % (0.0-3.9); FMetHb 0.3 % (0.0-1.5); FO2Hb 91.7 % (94-97); PATIENT TEMPERATURE 37.7; PEEP 5 cm H2O; RESPIRATORY RATE 12 b/min; TIDAL VOLUME 500 mL; TOTAL HEMOGLOBIN 8.1 G/dl (12.0-16.0)
[2022-05-12 21:14] LABS: ALBUMIN 3.2 G/DL (3.4-5.0); ALBUMIN/GLOBULIN RATIO 2.9 (1.1-1.5); ALKALINE PHOSPHATASE 112 IU/L (46-116); ANION GAP 17 (8-16); BILIRUBIN,TOTAL 3.5 MG/DL (0.1-1.0); BLOOD UREA NITROGEN 23 MG/DL (7-18); BUN/CREATININE RATIO 15.5 (10.0-20.0); CALCIUM 6.8 MG/DL (8.5-10.1); CHLORIDE 104 MMOL/L (99-107); CREATININE 1.48 MG/DL (0.40-0.90); GLUCOSE 119 MG/DL (70-104); POTASSIUM 4.4 MMOL/L (3.5-5.1); SODIUM 143 MMOL/L (135-145); TOTAL CARBON DIOXIDE 21.8 MMOL/L (24-32); TOTAL PROTEIN 4.3 G/DL (6.4-8.2); eGFR 35 ML/MIN
[2022-05-12 21:52] LABS: NUCLEATED RED BLOOD CELLS 19 /100WBC (0-0); TOTAL CELLS COUNTED 100
[2022-05-12 21:55] LABS: ALANINE AMINOTRANSFERASE 4375 U/L (12-78); ANISOCYTOSIS 2+; PLATELET ESTIMATE DECREASED
[2022-05-12 21:57] LABS: ELLIPTOCYTES FEW; SCHISTOCYTES FEW
[2022-05-12] MEDS ORDERED: vancomycin/NS 1 GM ADD-VANTAGE 250 ML IV SCH (23:00)
[2022-05-13] VITALS (41 sets, daily range): BP systolic 113–155; BP diastolic 43–58
[2022-05-13] MEDS: amiodarone/D5 360MG/200ML BAG 200 ML IV SCH ×3 (01:26→12:56)
[2022-05-13] MEDS: propofol 1000mg/100ml bottle 100 ML IV SCH ×3 (01:26→17:32)
[2022-05-13] MEDS: NORepinephrine 32 MG in Normal Saline 250ml IV soln IV PRN ×5 (02:14→20:12)
[2022-05-13 03:03] LABS: BASOPHILS % (AUTO) 0.1 % (0-1); HEMATOCRIT 23.7 % (35.0-45.0); LYMPHOCYTES # (AUTO) 0.4 X10'3 (1.1-4.8); MONOCYTES # (AUTO) 0.1 X10'3 (0-0.9); NEUTROPHILS # (AUTO) 3.6 X10'3 (1.8-7.7); WHITE BLOOD COUNT 4.1 X10'3 (4.5-11.0)
[2022-05-13 03:05] LABS: EOSINOPHILS % (AUTO) 0.6 % (0-6); LYMPHOCYTES % (AUTO) 10.3 % (21-51); MEAN CORPUSCULAR HEMOGLOBIN 31.4 PG (27.0-31.0); MEAN CORPUSCULAR HGB CONC 33.7 g/dL (33.0-36.5); MEAN CORPUSCULAR VOLUME 93.2 FL (78-98); MEAN PLATELET VOLUME 8.9 FL (7.4-10.4); MONOCYTES % (AUTO) 1.8 % (2-12); NEUTROPHILS % (AUTO) 87.2 % (42-75); PLATELET COUNT 61 X10'3 (140-440); RED BLOOD COUNT 2.54 X10'6 (4.20-5.60); RED CELL DISTRIBUTION WIDTH 17.9 % (11.5-14.5)
[2022-05-13 03:18] LABS: ALBUMIN 3.2 G/DL (3.4-5.0); ALBUMIN/GLOBULIN RATIO 3.6 (1.1-1.5); ALKALINE PHOSPHATASE 115 IU/L (46-116); ANION GAP 17 (8-16); BILIRUBIN,TOTAL 3.7 MG/DL (0.1-1.0); BLOOD UREA NITROGEN 30 MG/DL (7-18); BUN/CREATININE RATIO 19.7 (10.0-20.0); CALCIUM 6.9 MG/DL (8.5-10.1); CHLORIDE 105 MMOL/L (99-107); CREATININE 1.52 MG/DL (0.40-0.90); GLUCOSE 85 MG/DL (70-104); MAGNESIUM 2.1 MG/DL (1.5-2.4); POTASSIUM 4.4 MMOL/L (3.5-5.1); SODIUM 143 MMOL/L (135-145); TOTAL CARBON DIOXIDE 20.6 MMOL/L (24-32); TOTAL PROTEIN 4.1 G/DL (6.4-8.2); eGFR 34 ML/MIN
[2022-05-13 03:33] LABS: ALANINE AMINOTRANSFERASE 3888 U/L (12-78)
[2022-05-13 03:48] LABS: ABG BASE EXCESS -3.4 mmol/L (-2.0-2.0); ABG HCO3 20.5 mmol/L (22.0-26.0); ABG OXYGEN SATURATION 92.1 % (94-97); ABG PCO2 (T) 32.6 mmHg (32.0-45.0); ABG PO2 (T) 66.3 mmHg (75.0-100.0); FMetHb 0.3 % (0.0-1.5); PATIENT TEMPERATURE 37.5; PEEP 5 cm H2O; RESPIRATORY RATE 12 b/min; TIDAL VOLUME 500 mL
[2022-05-13 03:53] LABS: LARGE PLATELETS FEW
[2022-05-13] MEDS: albumin (Human) 5% 250ml 250 ML IV SCH ×6 (04:54→20:56)
--- NOTE | 2022-05-13 06:00 | NUR ---
Patient in room CICU 2011. I have received report from Raghavendra VÁSQUEZ and had the opportunity to ask questions and assume patient care.
[2022-05-13] MEDS: FENTANYL-0.9 % NACL/PF 100 ML IV PRN (06:11)
[2022-05-13] MEDS: SODIUM BICARBONATE IV SCH ×2 (06:34→14:34)
[2022-05-13] MEDS: [UNRECOGNIZED DRUG - OTHER] IV SCH ×2 (06:34→14:34)
[2022-05-13] MEDS: SODIUM BICARB IV SCH ×2 (06:34→14:34)
[2022-05-13] MEDS: K and/or MAG REPLACEMENT MC SCH ×2 (07:07→20:00)
[2022-05-13] MEDS: docusate sodium 100mg/10ml UD cup NG SCH ×2 (07:07→20:00)
[2022-05-13] MEDS: spironolactone 25 MG tablet NG SCH (07:07)
[2022-05-13] MEDS: losartan 25mg tablet NG SCH (07:24)
[2022-05-13] MEDS: pantoprazole 40mg IV 40 MG in normal saline 100ml IV soln 100 ML IV SCH (07:59)
[2022-05-13] MEDS: piperacillin/tazo 3.375gm/50ml 50 ML IV SCH ×3 (07:59→16:15)
[2022-05-13] MEDS: nystatin 15 GM powder TP SCH ×3 (08:00→20:55)
[2022-05-13] MEDS: mineral oil/petrolatum ophthal oint EACHEYE SCH ×3 (08:03→20:56)
[2022-05-13] MEDS: budesonide 0.5mg/2ml UD nebule IH SCH ×2 (08:55→21:16)
[2022-05-13] MEDS: ipratropium/albuterol 3ml nebule NEB SCH ×3 (08:55→21:16)
[2022-05-13] MEDS ORDERED: acetaminophen 325mg/10.15ml oral unit dose solution NG PRN ×2 (09:45→09:46)
[2022-05-13] MEDS ORDERED: diphenhydrAMINE 25 MG/10 ML UD oral solution NG PRN (09:45)
[2022-05-13] MEDS ORDERED: magnesium 4gm in 100ml NS 100 ML IV PRN (10:40)
[2022-05-13] MEDS ORDERED: Duosol 4K/3 Ca (w/calcium) 5,000 ML HE SCH (10:40)
[2022-05-13] MEDS ORDERED: calcium chloride inj. 1,000 MG in normal saline 100ml IV soln 100 ML IV PRN (10:40)
[2022-05-13] MEDS ORDERED: potassium Cl 40MEQ/270ML bag 270 ML IV PRN (10:40)
--- NOTE | 2022-05-13 12:30 | NUR ---
Dr. Mcclure placed left IJ raffaele. Rocuronium 50mg given to assist with line placement.
[2022-05-13 13:10] LABS: CLARITY,URINE CLOUDY (Clear); COLOR,URINE YELLOW (Yellow); GLUCOSE, URINE NEGATIVE (Neg); KETONES,URINE TRACE mg/dl (Neg); LEUKOCYTE ESTERASE ,URINE NEGATIVE (Neg); NITRITES, URINE NEGATIVE (Neg); OCCULT BLOOD,URINE LARGE (Neg); PROTEIN,URINE >=300 mg/dl (Neg); UROBILINOGEN,URINE 0.2 E.U/dL (0.2-1.0)
[2022-05-13 13:13] LABS: UA COLLECTION TYPE FOLEY CATH
[2022-05-13 13:24] LABS: BACTERIA,URINE FEW /HPF (Neg); HYALINE CASTS 0-3 /LPF (NEGATIVE); MUCUS STRANDS FEW /LPF (Neg); SQUAMOUS EPITHELIAL CELL,UR FEW /LPF (FEW); TRANSITIONAL EPI CELLS,URINE FEW /HPF; WBC,URINE 0-4 /HPF (0-4); YEAST MANY /HPF (NEGATIVE)
[2022-05-13] MEDS ORDERED: heparin 1,000 units/ml 10ml inj HE ONE ×2 (13:50)
[2022-05-13] MEDS ORDERED: dextrose 50%-water 50ml dispensing syringe IV ONE (14:55)
[2022-05-13] MEDS ORDERED: dextrose 50%-water 50ml dispensing syringe IV PRN (15:00)
[2022-05-13] MEDS: dextrose 50%-water 50ml dispensing syringe IV PRN ×3 (15:01→21:13)
[2022-05-13] MEDS: Duosol 4K/3 Ca (w/calcium) 5,000 ML HE SCH ×5 (16:50→23:36)
--- NOTE | 2022-05-13 17:25 | NUR ---
7Ko8Wwam/L duosol--5 bags hung by instructional technology facilitator and set up CVVH machine.
[2022-05-13 17:40] LABS: BASOPHILS % (AUTO) 0.1 % (0-1); MONOCYTES # (AUTO) 0.1 X10'3 (0-0.9); WHITE BLOOD COUNT 6.6 X10'3 (4.5-11.0)
[2022-05-13 17:42] LABS: EOSINOPHILS # (AUTO) 0.1 X10'3 (0-0.9); EOSINOPHILS % (AUTO) 0.9 % (0-6); LYMPHOCYTES # (AUTO) 0.6 X10'3 (1.1-4.8); LYMPHOCYTES % (AUTO) 9.1 % (21-51); MEAN CORPUSCULAR HEMOGLOBIN 31.6 PG (27.0-31.0); MEAN CORPUSCULAR HGB CONC 33.9 g/dL (33.0-36.5); MEAN CORPUSCULAR VOLUME 93.1 FL (78-98); MONOCYTES % (AUTO) 1.2 % (2-12); NEUTROPHILS # (AUTO) 5.8 X10'3 (1.8-7.7); NEUTROPHILS % (AUTO) 88.7 % (42-75)
[2022-05-13 17:51] LABS: ALBUMIN 2.9 G/DL (3.4-5.0); ANION GAP 16 (8-16); BLOOD UREA NITROGEN 35 MG/DL (7-18); BUN/CREATININE RATIO 19.8 (10.0-20.0); CHLORIDE 103 MMOL/L (99-107); CREATININE 1.77 MG/DL (0.40-0.90); GLUCOSE 80 MG/DL (70-104); MAGNESIUM 1.8 MG/DL (1.5-2.4); POTASSIUM 4.5 MMOL/L (3.5-5.1); SODIUM 142 MMOL/L (135-145); TOTAL CARBON DIOXIDE 23.5 MMOL/L (24-32); eGFR 28 ML/MIN
[2022-05-13 17:53] LABS: HEMOGLOBIN 6.9 g/dl (12.0-16.0)
[2022-05-13 17:54] LABS: HEMATOCRIT 20.5 % (35.0-45.0)
[2022-05-13 17:55] LABS: PLATELET COUNT 40 X10'3 (140-440)
--- NOTE | 2022-05-13 17:56 | NUR ---
Dr. Mcclure called regarding H&H 6.9.5 and plt 40. No answer.
[2022-05-13 18:00] LABS: PHOSPHORUS 5.5 MG/DL (2.3-4.5)
--- NOTE | 2022-05-13 18:27 | NUR ---
Dr. Mcclure called back and ordered 2units of PRBCs and 1 pack of platelets.
--- NOTE | 2022-05-13 18:27 | NUR ---
Problems reprioritized. Patient report given, questions answered & plan of care reviewed with Debora VÁSQUEZ.
--- NOTE | 2022-05-13 18:30 | NUR ---
Patient in room CICU 2011. I have received report from Alexandria VÁSQUEZ and had the opportunity to ask questions and assume patient care.
[2022-05-13 19:00] LABS: LYMPHOCYTES # (AUTO) 0.5 X10'3 (1.1-4.8); MEAN CORPUSCULAR HEMOGLOBIN 32.1 PG (27.0-31.0); MONOCYTES # (AUTO) 0.1 X10'3 (0-0.9); RED BLOOD COUNT 2.19 X10'6 (4.20-5.60)
[2022-05-13 19:01] LABS: BASOPHILS % (AUTO) 0.2 % (0-1); EOSINOPHILS % (AUTO) 0.4 % (0-6); LYMPHOCYTES % (AUTO) 7.6 % (21-51); MEAN CORPUSCULAR HGB CONC 34.6 g/dL (33.0-36.5); MEAN CORPUSCULAR VOLUME 92.7 FL (78-98); MEAN PLATELET VOLUME 9.2 FL (7.4-10.4); MONOCYTES % (AUTO) 1.2 % (2-12); NEUTROPHILS % (AUTO) 90.6 % (42-75); WHITE BLOOD COUNT 6.6 X10'3 (4.5-11.0)
[2022-05-13 19:06] LABS: HEMATOCRIT 20.3 % (35.0-45.0)
[2022-05-13 19:08] LABS: PLATELET COUNT 40 X10'3 (140-440)
[2022-05-13 19:11] LABS: ANION GAP 13 (8-16); BLOOD UREA NITROGEN 34 MG/DL (7-18); BUN/CREATININE RATIO 19.8 (10.0-20.0); CHLORIDE 103 MMOL/L (99-107); CREATININE 1.72 MG/DL (0.40-0.90); GLUCOSE 77 MG/DL (70-104); MAGNESIUM 1.7 MG/DL (1.5-2.4); SODIUM 141 MMOL/L (135-145); TOTAL CARBON DIOXIDE 24.7 MMOL/L (24-32); eGFR 29 ML/MIN
[2022-05-13 19:14] LABS: PHOSPHORUS 5.1 MG/DL (2.3-4.5); POTASSIUM 4.5 MMOL/L (3.5-5.1)
[2022-05-13 19:58] LABS: ANISOCYTOSIS 1+; NUCLEATED RED BLOOD CELLS 9 /100WBC (0-0); PLATELET ESTIMATE DECREASED; TOTAL CELLS COUNTED 100
[2022-05-13 20:00] LABS: SCHISTOCYTES FEW
[2022-05-13 20:01] LABS: BURR CELLS FEW; TEAR DROP CELLS FEW
[2022-05-13 21:52] LABS: BASOPHILS % (AUTO) 0.2 % (0-1); EOSINOPHILS % (AUTO) 0.3 % (0-6); HEMATOCRIT 22.4 % (35.0-45.0); HEMOGLOBIN 7.7 g/dl (12.0-16.0); LYMPHOCYTES # (AUTO) 0.4 X10'3 (1.1-4.8); LYMPHOCYTES % (AUTO) 6.9 % (21-51); MEAN CORPUSCULAR HEMOGLOBIN 31.2 PG (27.0-31.0); MEAN CORPUSCULAR HGB CONC 34.3 g/dL (33.0-36.5); MEAN CORPUSCULAR VOLUME 90.9 FL (78-98); MEAN PLATELET VOLUME 8.2 FL (7.4-10.4); MONOCYTES % (AUTO) 0.8 % (2-12); NEUTROPHILS # (AUTO) 5.6 X10'3 (1.8-7.7); NEUTROPHILS % (AUTO) 91.8 % (42-75); PLATELET COUNT 57 X10'3 (140-440); RED BLOOD COUNT 2.47 X10'6 (4.20-5.60); RED CELL DISTRIBUTION WIDTH 16.8 % (11.5-14.5); WHITE BLOOD COUNT 6.1 X10'3 (4.5-11.0)
[2022-05-13 22:02] LABS: APTT 67 SECONDS (22-32)
[2022-05-13 22:10] LABS: ALBUMIN 2.7 G/DL (3.4-5.0); ALKALINE PHOSPHATASE 103 IU/L (46-116); ANION GAP 12 (8-16); BILIRUBIN,TOTAL 3.9 MG/DL (0.1-1.0); BLOOD UREA NITROGEN 32 MG/DL (7-18); BUN/CREATININE RATIO 19.9 (10.0-20.0); CALCIUM 6.8 MG/DL (8.5-10.1); CHLORIDE 104 MMOL/L (99-107); CREATININE 1.61 MG/DL (0.40-0.90); GLUCOSE 107 MG/DL (70-104); MAGNESIUM 1.8 MG/DL (1.5-2.4); SODIUM 140 MMOL/L (135-145); TOTAL CARBON DIOXIDE 24.2 MMOL/L (24-32); eGFR 31 ML/MIN
[2022-05-13 22:25] LABS: ALANINE AMINOTRANSFERASE 1867 U/L (12-78); ASPARTATE AMINO TRANSFERASE 2500 U/L (10-37); PHOSPHORUS 4.9 MG/DL (2.3-4.5); POTASSIUM 4.5 MMOL/L (3.5-5.1); TOTAL PROTEIN 3.6 G/DL (6.4-8.2)
[2022-05-13 23:16] LABS: BASOPHILS % (AUTO) 0.1 % (0-1); HEMOGLOBIN 8.3 g/dl (12.0-16.0); MEAN PLATELET VOLUME 8.6 FL (7.4-10.4)
[2022-05-13 23:18] LABS: EOSINOPHILS % (AUTO) 0.5 % (0-6); HEMATOCRIT 24.1 % (35.0-45.0); LYMPHOCYTES # (AUTO) 0.5 X10'3 (1.1-4.8); LYMPHOCYTES % (AUTO) 8.4 % (21-51); MEAN CORPUSCULAR HEMOGLOBIN 31.2 PG (27.0-31.0); MEAN CORPUSCULAR HGB CONC 34.4 g/dL (33.0-36.5); MEAN CORPUSCULAR VOLUME 90.5 FL (78-98); MONOCYTES # (AUTO) 0.1 X10'3 (0-0.9); MONOCYTES % (AUTO) 1.1 % (2-12); NEUTROPHILS # (AUTO) 5.5 X10'3 (1.8-7.7); NEUTROPHILS % (AUTO) 89.9 % (42-75); PLATELET COUNT 55 X10'3 (140-440); RED BLOOD COUNT 2.67 X10'6 (4.20-5.60); RED CELL DISTRIBUTION WIDTH 16.8 % (11.5-14.5); WHITE BLOOD COUNT 6.1 X10'3 (4.5-11.0)
[2022-05-13 23:21] LABS: ALBUMIN 2.9 G/DL (3.4-5.0); ALKALINE PHOSPHATASE 108 IU/L (46-116); ANION GAP 12 (8-16); BILIRUBIN,TOTAL 4.5 MG/DL (0.1-1.0); BLOOD UREA NITROGEN 30 MG/DL (7-18); BUN/CREATININE RATIO 19.4 (10.0-20.0); CHLORIDE 104 MMOL/L (99-107); CREATININE 1.55 MG/DL (0.40-0.90); GLUCOSE 85 MG/DL (70-104); MAGNESIUM 1.7 MG/DL (1.5-2.4); SODIUM 141 MMOL/L (135-145); TOTAL CARBON DIOXIDE 25.3 MMOL/L (24-32); eGFR 33 ML/MIN
[2022-05-13 23:46] LABS: ALANINE AMINOTRANSFERASE 1903 U/L (12-78); ALBUMIN/GLOBULIN RATIO 3.6 (1.1-1.5); ASPARTATE AMINO TRANSFERASE 2852 U/L (10-37); POTASSIUM 4.4 MMOL/L (3.5-5.1); TOTAL PROTEIN 3.7 G/DL (6.4-8.2)
[2022-05-14] VITALS (51 sets, daily range): BP systolic 105–172; BP diastolic 36–55
[2022-05-14] MEDS: albumin (Human) 5% 250ml 250 ML IV SCH ×7 (00:06→22:47)
[2022-05-14] MEDS: FENTANYL-0.9 % NACL/PF 100 ML IV PRN ×3 (00:37→17:54)
[2022-05-14] MEDS: Duosol 4K/3 Ca (w/calcium) 5,000 ML HE SCH ×21 (00:39→20:26)
[2022-05-14] MEDS: piperacillin/tazo 3.375gm/50ml 50 ML IV SCH ×3 (00:40→16:55)
[2022-05-14] MEDS: vancomycin/NS 1 GM ADD-VANTAGE 250 ML IV SCH ×2 (00:40→23:09)
[2022-05-14] MEDS: amiodarone/D5 360MG/200ML BAG 200 ML IV SCH ×4 (01:15→12:54)
[2022-05-14] MEDS: propofol 1000mg/100ml bottle 100 ML IV SCH ×3 (01:16→20:35)
[2022-05-14] MEDS: dextrose 50%-water 50ml dispensing syringe IV PRN ×5 (02:06→14:11)
[2022-05-14] MEDS: mineral oil/petrolatum ophthal oint EACHEYE SCH ×4 (02:19→20:56)
[2022-05-14 03:15] LABS: ABG HCO3 22.5 mmol/L (22.0-26.0); ABG OXYGEN SATURATION 95.1 % (94-97); ABG PCO2 (T) 35.2 mmHg (32.0-45.0); ABG PO2 (T) 72.1 mmHg (75.0-100.0); FCOHb 2.9 % (0.0-3.9); FMetHb 0.3 % (0.0-1.5); FO2Hb 92.1 % (94-97); PATIENT TEMPERATURE 35.9; PEEP 5 cm H2O; RESPIRATORY RATE 12 b/min; TIDAL VOLUME 500 mL; TOTAL HEMOGLOBIN 7.6 G/dl (12.0-16.0)
[2022-05-14] MEDS: [UNRECOGNIZED DRUG - OTHER] IV SCH ×2 (03:40→16:54)
[2022-05-14] MEDS: SODIUM BICARBONATE IV SCH ×2 (03:40→16:54)
[2022-05-14] MEDS: SODIUM BICARB IV SCH ×2 (03:40→16:54)
[2022-05-14 04:46] LABS: HEMOGLOBIN 7.9 g/dl (12.0-16.0); MEAN CORPUSCULAR HGB CONC 34.7 g/dL (33.0-36.5)
[2022-05-14 04:48] LABS: HEMATOCRIT 22.8 % (35.0-45.0); MEAN CORPUSCULAR HEMOGLOBIN 31.3 PG (27.0-31.0); MEAN CORPUSCULAR VOLUME 90.2 FL (78-98); MEAN PLATELET VOLUME 8.5 FL (7.4-10.4); RED BLOOD COUNT 2.53 X10'6 (4.20-5.60); RED CELL DISTRIBUTION WIDTH 17.2 % (11.5-14.5); WHITE BLOOD COUNT 4.3 X10'3 (4.5-11.0)
[2022-05-14 05:04] LABS: APTT 73 SECONDS (22-32)
[2022-05-14 05:08] LABS: ALBUMIN 2.8 G/DL (3.4-5.0); ALKALINE PHOSPHATASE 97 IU/L (46-116); ANION GAP 11 (8-16); BILIRUBIN,TOTAL 5.6 MG/DL (0.1-1.0); BLOOD UREA NITROGEN 25 MG/DL (7-18); BUN/CREATININE RATIO 20.3 (10.0-20.0); CALCIUM 7.9 MG/DL (8.5-10.1); CHLORIDE 105 MMOL/L (99-107); CREATININE 1.23 MG/DL (0.40-0.90); GLUCOSE 76 MG/DL (70-104); MAGNESIUM 1.7 MG/DL (1.5-2.4); SODIUM 141 MMOL/L (135-145); TOTAL CARBON DIOXIDE 25.3 MMOL/L (24-32); eGFR 43 ML/MIN
[2022-05-14 05:17] LABS: ALANINE AMINOTRANSFERASE 1608 U/L (12-78); ALBUMIN/GLOBULIN RATIO 2.2 (1.1-1.5); ASPARTATE AMINO TRANSFERASE 1818 U/L (10-37); PHOSPHORUS 3.8 MG/DL (2.3-4.5); POTASSIUM 4.3 MMOL/L (3.5-5.1); TOTAL PROTEIN 4.1 G/DL (6.4-8.2)
[2022-05-14] MEDS: NORepinephrine 32 MG in Normal Saline 250ml IV soln IV PRN ×2 (05:39→23:05)
[2022-05-14 06:28] LABS: NUCLEATED RED BLOOD CELLS 6 /100WBC (0-0); PLATELET ESTIMATE DECREASED; TOTAL CELLS COUNTED 100
[2022-05-14 06:29] LABS: ANISOCYTOSIS 1+; ELLIPTOCYTES FEW
--- NOTE | 2022-05-14 06:30 | NUR ---
Patient in room CICU 2011. I have received report from Debora VÁSQUEZ and had the opportunity to ask questions and assume patient care.
[2022-05-14 06:32] LABS: PLATELET COUNT 32 X10'3 (140-440)
[2022-05-14 06:33] LABS: PLATELET COUNT 32 X10'3 (140-440)
--- NOTE | 2022-05-14 06:36 | NUR ---
Problems reprioritized. Patient report given, questions answered & plan of care reviewed with Sherry VÁSQUEZ.
[2022-05-14] MEDS ORDERED: heparin 1,000 units/ml 10ml inj HE ONE ×2 (07:05)
[2022-05-14] MEDS: pantoprazole 40mg IV 40 MG in normal saline 100ml IV soln 100 ML IV SCH (07:21)
[2022-05-14 07:25] LABS: D-DIMER 3.66 MG/L FEU (0-0.50)
[2022-05-14] MEDS: nystatin 15 GM powder TP SCH ×3 (08:00→20:56)
[2022-05-14] MEDS: spironolactone 25 MG tablet NG SCH (08:00)
[2022-05-14] MEDS: docusate sodium 100mg/10ml UD cup NG SCH ×2 (08:00→20:00)
[2022-05-14] MEDS: K and/or MAG REPLACEMENT MC SCH ×2 (08:00→20:00)
[2022-05-14] MEDS: losartan 25mg tablet NG SCH (08:00)
--- NOTE | 2022-05-14 08:06 | NUR ---
WOC note. Per MD notes, the patient is having further surgical intervention today. WOC will continue to follow patient's progress in an effort to perform total body skin assessment and probable NPWT dressing changes.
[2022-05-14] MEDS: vasopressin inj. 40 UNIT in normal saline 50ml IV soln 38 ML IV SCH (08:09)
--- NOTE | 2022-05-14 08:58 | NUR ---
Patient to OR accompanied by ASSISTED LIVING DIRECTOR, Dr. Sanchez and two OR scrub techs
[2022-05-14] MEDS: ipratropium/albuterol 3ml nebule NEB SCH ×3 (09:00→21:15)
[2022-05-14] MEDS: budesonide 0.5mg/2ml UD nebule IH SCH ×2 (09:00→21:15)
[2022-05-14] MEDS ORDERED: albumin (Human) 5% 250ml 250 ML IV ONE (09:48)
[2022-05-14] MEDS ORDERED: rocuronium 10mg/ml inj IV ONE (09:51)
[2022-05-14] MEDS ORDERED: VANCOMYCIN LEVEL IV ONE (10:30)
--- NOTE | 2022-05-14 10:37 | NUR ---
Patient off CVVH and hep locked when picked up from CICU. Accompanied by anesthesia, pt transported to OR on monitor. Pt intubated, central line, arterial line, peripheral IV's, sethi catheter in place prior to surgery. Midline abdominal wound with justina, abthera wound vac to right abdomen. Abthera device removed by surgeon, peripheral sponges intact. Following the surgery, new abthera device placed by surgeon. Outer 2 squares of device removed by MD(6 PERIPHERAL SPONGES REMAIN WITH ONE LARGE INNER). One abthera device and 2 blue sponges placed by Dr. Riggs. The abdominal wound measures [id number].
--- NOTE | 2022-05-14 11:33 | NUR ---
TPN consult: Per EMR pt back to OR again today for ex lap and bowel resection. Fascia left open per MD note. Okay to begin TPN at this time per MD. Propofol visualized at bedside to be running at 9.518 mL/hr providing 251 kcal/day. Recommend custom TPN with no additional lipids in view of CVVH and Propofol. TPN recommendations have been d/w clinical pharmacist. Per RN pt requiring D50 pushes to stabilize blood sugars and requested TPN be initiated TESSA, clinical pharmacist notified. Will continue to follow closely and adjust recommendations as appropriate. Recommendations: 1. Continuous custom TPN using 1200 mL 10% AA and 480 mL D70 with goal rate of 70 mL/hr to provide 1680 mL volume/day, 120 g AA, and 336 g dext (1.71 mg/kg/min GIR); No additional lipids at this time in view of Propofol 2. Monitor Propofol rate and need to adjust nutrition recs 3. Prealbumin and TG q Thursday/ 4. Bowel care per MD post-op 5. Daily scaled wts 6. Advance to low fiber diet as medically indicated following extubation Addendum: 05/14/22 at [address] Amended: Links added.
--- NOTE | 2022-05-14 11:45 | NUR ---
Notified Dr. Mcclure of H/H 7.3 and 21.6 and platelets of 48, no new orders at this time
[2022-05-14 11:52] LABS: LYMPHOCYTES # (AUTO) 0.3 X10'3 (1.1-4.8); NEUTROPHILS # (AUTO) 3.1 X10'3 (1.8-7.7); WHITE BLOOD COUNT 3.4 X10'3 (4.5-11.0)
[2022-05-14 11:54] LABS: BASOPHILS % (AUTO) 0.1 % (0-1); EOSINOPHILS % (AUTO) 1.1 % (0-6); HEMOGLOBIN 7.3 g/dl (12.0-16.0); LYMPHOCYTES % (AUTO) 8.4 % (21-51); MEAN CORPUSCULAR HGB CONC 34.1 g/dL (33.0-36.5); MEAN CORPUSCULAR VOLUME 91.1 FL (78-98); MEAN PLATELET VOLUME 7.6 FL (7.4-10.4); MONOCYTES % (AUTO) 1.1 % (2-12); NEUTROPHILS % (AUTO) 89.3 % (42-75); RED BLOOD COUNT 2.37 X10'6 (4.20-5.60); RED CELL DISTRIBUTION WIDTH 17.9 % (11.5-14.5)
[2022-05-14 11:56] LABS: HEMATOCRIT 21.6 % (35.0-45.0)
[2022-05-14 11:57] LABS: PLATELET COUNT 48 X10'3 (140-440)
[2022-05-14] MEDS ORDERED: Dextrose 10%-water IV solution 1,000 ML IV PRN (12:00)
[2022-05-14 12:04] LABS: ALBUMIN 2.9 G/DL (3.4-5.0); ANION GAP 13 (8-16); BLOOD UREA NITROGEN 25 MG/DL (7-18); BUN/CREATININE RATIO 19.8 (10.0-20.0); CHLORIDE 104 MMOL/L (99-107); CREATININE 1.26 MG/DL (0.40-0.90); GLUCOSE 98 MG/DL (70-104); MAGNESIUM 1.6 MG/DL (1.5-2.4); SODIUM 142 MMOL/L (135-145); TOTAL CARBON DIOXIDE 25.5 MMOL/L (24-32); eGFR 42 ML/MIN
[2022-05-14 12:14] LABS: PHOSPHORUS 3.7 MG/DL (2.3-4.5); POTASSIUM 4.1 MMOL/L (3.5-5.1)
[2022-05-14] MEDS: ZINC IV SCH ×4 (14:44)
[2022-05-14] MEDS: MANGANESE IV SCH ×4 (14:44)
[2022-05-14] MEDS: [UNRECOGNIZED DRUG - OTHER] IV SCH ×4 (14:44)
[2022-05-14] MEDS: SELENIUM IV SCH ×4 (14:44)
[2022-05-14] MEDS: COPPER IV SCH ×4 (14:44)
[2022-05-14] MEDS: CHROMIC CHLORIDE IV SCH ×4 (14:44)
[2022-05-14 15:50] LABS: BASOPHILS % (AUTO) 0.1 % (0-1); EOSINOPHILS % (AUTO) 0.7 % (0-6); HEMOGLOBIN 7.1 g/dl (12.0-16.0); LYMPHOCYTES # (AUTO) 0.3 X10'3 (1.1-4.8); LYMPHOCYTES % (AUTO) 9.5 % (21-51); MEAN CORPUSCULAR HEMOGLOBIN 30.5 PG (27.0-31.0); MEAN CORPUSCULAR HGB CONC 33.6 g/dL (33.0-36.5); MEAN CORPUSCULAR VOLUME 90.8 FL (78-98); MEAN PLATELET VOLUME 7.8 FL (7.4-10.4); MONOCYTES % (AUTO) 0.9 % (2-12); NEUTROPHILS % (AUTO) 88.8 % (42-75); RED BLOOD COUNT 2.34 X10'6 (4.20-5.60); RED CELL DISTRIBUTION WIDTH 17.6 % (11.5-14.5); WHITE BLOOD COUNT 3.4 X10'3 (4.5-11.0)
[2022-05-14 15:59] LABS: ANION GAP 8 (8-16); BLOOD UREA NITROGEN 21 MG/DL (7-18); BUN/CREATININE RATIO 19.4 (10.0-20.0); CHLORIDE 105 MMOL/L (99-107); CREATININE 1.08 MG/DL (0.40-0.90); GLUCOSE 95 MG/DL (70-104); MAGNESIUM 1.6 MG/DL (1.5-2.4); PREALBUMIN 8.7 MG/DL (19-36); SODIUM 141 MMOL/L (135-145); TOTAL CARBON DIOXIDE 27.6 MMOL/L (24-32); eGFR 50 ML/MIN
[2022-05-14 16:01] LABS: PHOSPHORUS 2.9 MG/DL (2.3-4.5); POTASSIUM 4.1 MMOL/L (3.5-5.1)
[2022-05-14 16:11] LABS: HEMATOCRIT 21.2 % (35.0-45.0)
[2022-05-14 16:12] LABS: PLATELET COUNT 38 X10'3 (140-440)
--- NOTE | 2022-05-14 16:38 | NUR ---
called Dr Mcclure with repeat labs hgb 7.1 and Plt 38 new orders 2 units prbc 1 10pack platelets Pt/ptt/INR
[2022-05-14 18:04] LABS: APTT 77 SECONDS (22-32)
--- NOTE | 2022-05-14 18:30 | NUR ---
Patient in room CICU 2011. I have received report from Sherry VÁSQUEZ and had the opportunity to ask questions and assume patient care.
[2022-05-14 22:24] LABS: HEMOGLOBIN 8.9 g/dl (12.0-16.0); WHITE BLOOD COUNT 3.9 X10'3 (4.5-11.0)
[2022-05-14 22:28] LABS: HEMATOCRIT 25.8 % (35.0-45.0); MEAN CORPUSCULAR HEMOGLOBIN 30.8 PG (27.0-31.0); MEAN CORPUSCULAR HGB CONC 34.4 g/dL (33.0-36.5); MEAN CORPUSCULAR VOLUME 89.5 FL (78-98); RED BLOOD COUNT 2.88 X10'6 (4.20-5.60); RED CELL DISTRIBUTION WIDTH 16.4 % (11.5-14.5)
[2022-05-14 22:32] LABS: PLATELET COUNT 49 X10'3 (140-440)
[2022-05-14 22:37] LABS: APTT 61 SECONDS (22-32); D-DIMER 2.68 MG/L FEU (0-0.50)
[2022-05-14 22:44] LABS: ALBUMIN 3.1 G/DL (3.4-5.0); ANION GAP 9 (8-16); BLOOD UREA NITROGEN 16 MG/DL (7-18); CHLORIDE 104 MMOL/L (99-107); CREATININE 0.94 MG/DL (0.40-0.90); GLUCOSE 107 MG/DL (70-104); MAGNESIUM 1.5 MG/DL (1.5-2.4); POTASSIUM 3.9 MMOL/L (3.5-5.1); SODIUM 139 MMOL/L (135-145); TOTAL CARBON DIOXIDE 25.6 MMOL/L (24-32); eGFR 59 ML/MIN
[2022-05-14 22:48] LABS: PHOSPHORUS 2.2 MG/DL (2.3-4.5)
[2022-05-14 23:03] LABS: PLATELET COUNT 49 X10'3 (140-440)
[2022-05-14 23:11] LABS: NUCLEATED RED BLOOD CELLS 3 /100WBC (0-0); PLATELET ESTIMATE DECREASED; TOTAL CELLS COUNTED 100
[2022-05-14 23:12] LABS: ANISOCYTOSIS 1+; BURR CELLS FEW; ELLIPTOCYTES FEW; STOMATOCYTES FEW; TEAR DROP CELLS FEW
[2022-05-14 23:15] LABS: SMUDGE CELLS FEW; TOXIC VACUOLATION 2+
[2022-05-15] VITALS (41 sets, daily range): BP systolic 92–146; BP diastolic 38–52
[2022-05-15] MEDS: piperacillin/tazo 3.375gm/50ml 50 ML IV SCH ×3 (00:46→15:32)
[2022-05-15] MEDS: amiodarone/D5 360MG/200ML BAG 200 ML IV SCH ×5 (00:47→20:51)
[2022-05-15] MEDS: albumin (Human) 5% 250ml 250 ML IV SCH ×8 (01:45→20:52)
[2022-05-15] MEDS: Duosol 4K/3 Ca (w/calcium) 5,000 ML HE SCH ×16 (01:46→22:50)
[2022-05-15] MEDS: mineral oil/petrolatum ophthal oint EACHEYE SCH ×4 (02:52→20:50)
[2022-05-15] MEDS: FENTANYL-0.9 % NACL/PF 100 ML IV PRN ×3 (03:13→17:10)
[2022-05-15 03:32] LABS: ABG BASE EXCESS 0.3 mmol/L (-2.0-2.0); ABG HCO3 25.8 mmol/L (22.0-26.0); ABG OXYGEN SATURATION 96.6 % (94-97); ABG PO2 (T) 80.5 mmHg (75.0-100.0); FCOHb 2.2 % (0.0-3.9); FMetHb 0.3 % (0.0-1.5); FO2Hb 94.2 % (94-97); PEEP 5 cm H2O; RESPIRATORY RATE 12 b/min; TIDAL VOLUME 500 mL; TOTAL HEMOGLOBIN 8.9 G/dl (12.0-16.0)
[2022-05-15] MEDS: propofol 1000mg/100ml bottle 100 ML IV SCH ×3 (03:39→22:40)
[2022-05-15 04:49] LABS: HEMOGLOBIN 8.5 g/dl (12.0-16.0)
[2022-05-15] MEDS: sodium phosphate inj. 30 MMOL in dextrose 5%-water 250 ML IV PRN (04:49)
[2022-05-15 04:51] LABS: HEMATOCRIT 24.9 % (35.0-45.0); MEAN CORPUSCULAR HEMOGLOBIN 30.9 PG (27.0-31.0); MEAN CORPUSCULAR HGB CONC 34.2 g/dL (33.0-36.5); MEAN CORPUSCULAR VOLUME 90.1 FL (78-98); RED BLOOD COUNT 2.76 X10'6 (4.20-5.60); WHITE BLOOD COUNT 4.9 X10'3 (4.5-11.0)
[2022-05-15 04:57] LABS: APTT 64 SECONDS (22-32); D-DIMER 3.21 MG/L FEU (0-0.50)
[2022-05-15 05:03] LABS: ALANINE AMINOTRANSFERASE 768 U/L (12-78); ALBUMIN 3.1 G/DL (3.4-5.0); ALKALINE PHOSPHATASE 71 IU/L (46-116); ANION GAP 7 (8-16); ASPARTATE AMINO TRANSFERASE 395 U/L (10-37); BILIRUBIN,TOTAL 8.1 MG/DL (0.1-1.0); BLOOD UREA NITROGEN 13 MG/DL (7-18); CALCIUM 8.4 MG/DL (8.5-10.1); CHLORIDE 105 MMOL/L (99-107); CREATININE 0.81 MG/DL (0.40-0.90); GLUCOSE 136 MG/DL (70-104); MAGNESIUM 1.6 MG/DL (1.5-2.4); POTASSIUM 3.8 MMOL/L (3.5-5.1); SODIUM 139 MMOL/L (135-145); TOTAL CARBON DIOXIDE 26.6 MMOL/L (24-32); eGFR 70 ML/MIN
[2022-05-15 05:06] LABS: ALBUMIN/GLOBULIN RATIO 2.8 (1.1-1.5); PHOSPHORUS 1.6 MG/DL (2.3-4.5); TOTAL PROTEIN 4.2 G/DL (6.4-8.2)
[2022-05-15 05:26] LABS: PLATELET COUNT 28 X10'3 (140-440)
[2022-05-15 05:27] LABS: PLATELET COUNT 28 X10'3 (140-440)
[2022-05-15 05:36] LABS: NUCLEATED RED BLOOD CELLS 2 /100WBC (0-0); TOTAL CELLS COUNTED 100
[2022-05-15 05:37] LABS: ANISOCYTOSIS 1+; PLATELET ESTIMATE DECREASED
[2022-05-15] MEDS ORDERED: methylPREDNISolone sod succ 125mg/2ml vial IV ONE (05:46)
--- NOTE | 2022-05-15 06:27 | NUR ---
Problems reprioritized. Patient report given, questions answered & plan of care reviewed with Lamar VÁSQUEZ.
[2022-05-15] MEDS: budesonide 0.5mg/2ml UD nebule IH SCH ×2 (07:33→20:50)
[2022-05-15] MEDS: ipratropium/albuterol 3ml nebule NEB SCH ×3 (07:33→20:50)
[2022-05-15] MEDS: spironolactone 25 MG tablet NG SCH (08:00)
[2022-05-15] MEDS: K and/or MAG REPLACEMENT MC SCH ×2 (08:00→20:00)
[2022-05-15] MEDS: losartan 25mg tablet NG SCH (08:00)
[2022-05-15 08:32] LABS: PREALBUMIN 9.9 MG/DL (19-36)
[2022-05-15] MEDS: MVI, adult No.4 with vit. K 10 ML in dextrose 5% water 500ml 500 ML IV SCH ×2 (08:33)
[2022-05-15] MEDS: pantoprazole 40mg IV 40 MG in normal saline 100ml IV soln 100 ML IV SCH ×2 (08:34→23:40)
[2022-05-15] MEDS: nystatin 15 GM powder TP SCH ×3 (08:36→20:51)
[2022-05-15] MEDS: docusate sodium 100mg/10ml UD cup NG SCH ×2 (08:36→20:51)
[2022-05-15 08:38] LABS: TRIGLYCERIDES 90 MG/DL (20-135)
[2022-05-15] MEDS: micafungin inj 100 MG in normal saline 100ml IV soln 100 ML IV SCH (10:48)
[2022-05-15 11:14] LABS: MEAN CORPUSCULAR HEMOGLOBIN 30.7 PG (27.0-31.0); MEAN CORPUSCULAR HGB CONC 33.6 g/dL (33.0-36.5); MONOCYTES % (AUTO) 0.7 % (2-12); PLATELET COUNT 58 X10'3 (140-440)
[2022-05-15 11:16] LABS: BASOPHILS % (AUTO) 0 % (0-1); EOSINOPHILS # (AUTO) 0.1 X10'3 (0-0.9); EOSINOPHILS % (AUTO) 0.8 % (0-6); HEMATOCRIT 24.3 % (35.0-45.0); HEMOGLOBIN 8.2 g/dl (12.0-16.0); LYMPHOCYTES # (AUTO) 0.4 X10'3 (1.1-4.8); LYMPHOCYTES % (AUTO) 5.1 % (21-51); MEAN CORPUSCULAR VOLUME 91.3 FL (78-98); MEAN PLATELET VOLUME 8.1 FL (7.4-10.4); NEUTROPHILS # (AUTO) 6.4 X10'3 (1.8-7.7); NEUTROPHILS % (AUTO) 93.4 % (42-75); RED BLOOD COUNT 2.66 X10'6 (4.20-5.60); WHITE BLOOD COUNT 6.8 X10'3 (4.5-11.0)
[2022-05-15 11:26] LABS: ALBUMIN 3.1 G/DL (3.4-5.0); ANION GAP 7 (8-16); BLOOD UREA NITROGEN 12 MG/DL (7-18); BUN/CREATININE RATIO 15.2 (10.0-20.0); CHLORIDE 104 MMOL/L (99-107); CREATININE 0.79 MG/DL (0.40-0.90); GLUCOSE 186 MG/DL (70-104); MAGNESIUM 1.5 MG/DL (1.5-2.4); PHOSPHORUS 2.2 MG/DL (2.3-4.5); POTASSIUM 3.6 MMOL/L (3.5-5.1); SODIUM 137 MMOL/L (135-145); eGFR 72 ML/MIN
[2022-05-15 11:37] LABS: APTT 61 SECONDS (22-32); D-DIMER 3.14 MG/L FEU (0-0.50)
[2022-05-15 12:00] LABS: PLATELET COUNT 58 X10'3 (140-440)
[2022-05-15] MEDS ORDERED: sodium phosphate inj. 30 MMOL in dextrose 5%-water 250 ML IV ONE (12:40)
[2022-05-15 16:17] LABS: BASOPHILS % (AUTO) 0.1 % (0-1); RED CELL DISTRIBUTION WIDTH 17.2 % (11.5-14.5); WHITE BLOOD COUNT 10.5 X10'3 (4.5-11.0)
[2022-05-15 16:18] LABS: EOSINOPHILS # (AUTO) 0.4 X10'3 (0-0.9); EOSINOPHILS % (AUTO) 3.4 % (0-6); HEMATOCRIT 24.9 % (35.0-45.0); HEMOGLOBIN 8.6 g/dl (12.0-16.0); LYMPHOCYTES # (AUTO) 0.3 X10'3 (1.1-4.8); LYMPHOCYTES % (AUTO) 3.1 % (21-51); MEAN CORPUSCULAR HEMOGLOBIN 31.5 PG (27.0-31.0); MEAN CORPUSCULAR HGB CONC 34.6 g/dL (33.0-36.5); MEAN CORPUSCULAR VOLUME 90.9 FL (78-98); MEAN PLATELET VOLUME 9.1 FL (7.4-10.4); MONOCYTES % (AUTO) 0.5 % (2-12); NEUTROPHILS # (AUTO) 9.7 X10'3 (1.8-7.7); NEUTROPHILS % (AUTO) 92.9 % (42-75); RED BLOOD COUNT 2.74 X10'6 (4.20-5.60)
[2022-05-15 16:22] LABS: PLATELET COUNT 39 X10'3 (140-440)
[2022-05-15 16:36] LABS: ALANINE AMINOTRANSFERASE 583 U/L (12-78); ALBUMIN 3.1 G/DL (3.4-5.0); ALBUMIN/GLOBULIN RATIO 2.1 (1.1-1.5); ALKALINE PHOSPHATASE 69 IU/L (46-116); ANION GAP 7 (8-16); ASPARTATE AMINO TRANSFERASE 203 U/L (10-37); BILIRUBIN,TOTAL 7.7 MG/DL (0.1-1.0); BLOOD UREA NITROGEN 12 MG/DL (7-18); BUN/CREATININE RATIO 16.9 (10.0-20.0); CALCIUM 8.2 MG/DL (8.5-10.1); CHLORIDE 104 MMOL/L (99-107); CREATININE 0.71 MG/DL (0.40-0.90); GLUCOSE 179 MG/DL (70-104); MAGNESIUM 1.5 MG/DL (1.5-2.4); POTASSIUM 3.6 MMOL/L (3.5-5.1); SODIUM 137 MMOL/L (135-145); TOTAL CARBON DIOXIDE 25.9 MMOL/L (24-32); TOTAL PROTEIN 4.6 G/DL (6.4-8.2); eGFR 81 ML/MIN
[2022-05-15] MEDS: MANGANESE IV SCH ×4 (17:09)
[2022-05-15] MEDS: ZINC IV SCH ×4 (17:09)
[2022-05-15] MEDS: COPPER IV SCH ×4 (17:09)
[2022-05-15] MEDS: [UNRECOGNIZED DRUG - OTHER] IV SCH ×4 (17:09)
[2022-05-15] MEDS: CHROMIC CHLORIDE IV SCH ×4 (17:09)
[2022-05-15] MEDS: SELENIUM IV SCH ×4 (17:09)
[2022-05-15] MEDS: NORepinephrine 32 MG in Normal Saline 250ml IV soln IV PRN (17:22)
--- NOTE | 2022-05-15 18:30 | NUR ---
Patient in room CICU 2011. I have received report from Lamar VÁSQUEZ and had the opportunity to ask questions and assume patient care.
[2022-05-15] MEDS: methylPREDNISolone sod succ/PF 40mg inj. IV SCH (20:51)
[2022-05-15 22:32] LABS: MONOCYTES # (AUTO) 0.1 X10'3 (0-0.9)
[2022-05-15 22:33] LABS: BASOPHILS % (AUTO) 0 % (0-1); EOSINOPHILS # (AUTO) 0.2 X10'3 (0-0.9); EOSINOPHILS % (AUTO) 1.9 % (0-6); HEMATOCRIT 24.7 % (35.0-45.0); HEMOGLOBIN 8.2 g/dl (12.0-16.0); LYMPHOCYTES # (AUTO) 0.4 X10'3 (1.1-4.8); LYMPHOCYTES % (AUTO) 3.2 % (21-51); MEAN CORPUSCULAR HEMOGLOBIN 30.1 PG (27.0-31.0); MEAN CORPUSCULAR HGB CONC 33.1 g/dL (33.0-36.5); MEAN CORPUSCULAR VOLUME 90.8 FL (78-98); MEAN PLATELET VOLUME 8.4 FL (7.4-10.4); MONOCYTES % (AUTO) 0.5 % (2-12); NEUTROPHILS # (AUTO) 12.1 X10'3 (1.8-7.7); NEUTROPHILS % (AUTO) 94.4 % (42-75); PLATELET COUNT 55 X10'3 (140-440); RED BLOOD COUNT 2.72 X10'6 (4.20-5.60); WHITE BLOOD COUNT 12.8 X10'3 (4.5-11.0)
[2022-05-15 22:34] LABS: ALBUMIN 3.3 G/DL (3.4-5.0); ANION GAP 6 (8-16); BLOOD UREA NITROGEN 12 MG/DL (7-18); BUN/CREATININE RATIO 18.5 (10.0-20.0); CHLORIDE 104 MMOL/L (99-107); CREATININE 0.65 MG/DL (0.40-0.90); GLUCOSE 152 MG/DL (70-104); MAGNESIUM 1.5 MG/DL (1.5-2.4); PHOSPHORUS 1.9 MG/DL (2.3-4.5); POTASSIUM 3.6 MMOL/L (3.5-5.1); SODIUM 137 MMOL/L (135-145); TOTAL CARBON DIOXIDE 26.6 MMOL/L (24-32); eGFR 90 ML/MIN
[2022-05-15] MEDS ORDERED: VANCOMYCIN LEVEL IV ONE (23:30)
[2022-05-15] MEDS: vancomycin/NS 1 GM ADD-VANTAGE 250 ML IV SCH (23:43)
[2022-05-15 23:54] LABS: VANCOMYCIN,TROUGH 13.7 UG/ML (6.0-14.0)
[2022-05-16] VITALS (23 sets, daily range): BP systolic 57–151; BP diastolic 28–60
[2022-05-16] MEDS: mineral oil/petrolatum ophthal oint EACHEYE SCH ×3 (02:00→13:19)
[2022-05-16] MEDS: amiodarone/D5 360MG/200ML BAG 200 ML IV SCH ×2 (02:58→08:34)
[2022-05-16] MEDS: propofol 1000mg/100ml bottle 100 ML IV SCH ×2 (03:21→11:27)
[2022-05-16] MEDS: FENTANYL-0.9 % NACL/PF 100 ML IV PRN ×2 (03:21→10:31)
[2022-05-16] MEDS: albumin (Human) 5% 250ml 250 ML IV SCH ×5 (03:22→13:15)
[2022-05-16] MEDS: sodium phosphate inj. 30 MMOL in dextrose 5%-water 250 ML IV PRN (03:30)
[2022-05-16 03:33] LABS: ABG BASE EXCESS -0.6 mmol/L (-2.0-2.0); ABG HCO3 25.9 mmol/L (22.0-26.0); ABG OXYGEN SATURATION 96.4 % (94-97); ABG PCO2 (T) 51.4 mmHg (32.0-45.0); ABG PO2 (T) 81.7 mmHg (75.0-100.0); FCOHb 1.5 % (0.0-3.9); FMetHb 0.3 % (0.0-1.5); FO2Hb 94.7 % (94-97); PATIENT TEMPERATURE 36.4; PEEP 5 cm H2O; RESPIRATORY RATE 12 b/min; TIDAL VOLUME 500 mL; TOTAL HEMOGLOBIN 8.7 G/dl (12.0-16.0)
[2022-05-16 04:28] LABS: HEMOGLOBIN 8.1 g/dl (12.0-16.0); LYMPHOCYTES # (AUTO) 0.4 X10'3 (1.1-4.8); MONOCYTES # (AUTO) 0.1 X10'3 (0-0.9); NEUTROPHILS # (AUTO) 12.9 X10'3 (1.8-7.7)
[2022-05-16 04:29] LABS: BASOPHILS % (AUTO) 0.1 % (0-1); EOSINOPHILS # (AUTO) 0.1 X10'3 (0-0.9); EOSINOPHILS % (AUTO) 0.5 % (0-6); HEMATOCRIT 24.5 % (35.0-45.0); LYMPHOCYTES % (AUTO) 3.2 % (21-51); MEAN CORPUSCULAR HEMOGLOBIN 29.9 PG (27.0-31.0); MEAN CORPUSCULAR VOLUME 90.7 FL (78-98); MEAN PLATELET VOLUME 8.4 FL (7.4-10.4); MONOCYTES % (AUTO) 0.7 % (2-12); NEUTROPHILS % (AUTO) 95.5 % (42-75); RED BLOOD COUNT 2.71 X10'6 (4.20-5.60); RED CELL DISTRIBUTION WIDTH 17.1 % (11.5-14.5); WHITE BLOOD COUNT 13.5 X10'3 (4.5-11.0)
[2022-05-16 04:34] LABS: PLATELET COUNT 31 X10'3 (140-440)
[2022-05-16] MEDS: Duosol 4K/3 Ca (w/calcium) 5,000 ML HE SCH ×4 (04:35→06:21)
[2022-05-16 04:37] LABS: ALANINE AMINOTRANSFERASE 417 U/L (12-78); ALBUMIN 3.3 G/DL (3.4-5.0); ALBUMIN/GLOBULIN RATIO 2.2 (1.1-1.5); ALKALINE PHOSPHATASE 69 IU/L (46-116); ANION GAP 6 (8-16); ASPARTATE AMINO TRANSFERASE 96 U/L (10-37); BILIRUBIN,TOTAL 7.4 MG/DL (0.1-1.0); BLOOD UREA NITROGEN 12 MG/DL (7-18); BUN/CREATININE RATIO 20.3 (10.0-20.0); CALCIUM 8.5 MG/DL (8.5-10.1); CHLORIDE 102 MMOL/L (99-107); CREATININE 0.59 MG/DL (0.40-0.90); GLUCOSE 187 MG/DL (70-104); MAGNESIUM 1.5 MG/DL (1.5-2.4); PHOSPHORUS 1.8 MG/DL (2.3-4.5); POTASSIUM 3.5 MMOL/L (3.5-5.1); SODIUM 135 MMOL/L (135-145); TOTAL CARBON DIOXIDE 26.7 MMOL/L (24-32); TOTAL PROTEIN 4.8 G/DL (6.4-8.2); eGFR > 90 ML/MIN
[2022-05-16 04:42] LABS: APTT 56 SECONDS (22-32)
[2022-05-16 04:54] LABS: PLATELET COUNT 31 X10'3 (140-440)
[2022-05-16 04:59] LABS: NUCLEATED RED BLOOD CELLS 4 /100WBC (0-0); TOTAL CELLS COUNTED 100
[2022-05-16 05:00] LABS: ACANTHOCYTES FEW; ANISOCYTOSIS 1+; BURR CELLS FEW; PLATELET ESTIMATE DECREASED; SMUDGE CELLS FEW
[2022-05-16] MEDS ORDERED: methylPREDNISolone sod succ/PF 40mg inj. IV ONE (05:46)
--- NOTE | 2022-05-16 06:16 | NUR ---
Problems reprioritized. Patient report given, questions answered & plan of care reviewed with Lamar VÁSQUEZ.
[2022-05-16] MEDS: K and/or MAG REPLACEMENT MC SCH (06:32)
--- NOTE | 2022-05-16 06:33 | NUR ---
Patient in room CICU 2011. I have received report from Debora VÁSQUEZ and had the opportunity to ask questions and assume patient care.
[2022-05-16] MEDS: [UNRECOGNIZED DRUG - MIXTURE] HE SCH ×5 (07:13→13:17)
[2022-05-16] MEDS: pantoprazole 40mg IV 40 MG in normal saline 100ml IV soln 100 ML IV SCH (07:39)
[2022-05-16] MEDS: MVI, adult No.4 with vit. K 10 ML in dextrose 5% water 500ml 500 ML IV SCH ×2 (07:39)
[2022-05-16] MEDS: spironolactone 25 MG tablet NG SCH (07:40)
[2022-05-16] MEDS: methylPREDNISolone sod succ/PF 40mg inj. IV SCH (07:40)
[2022-05-16] MEDS: docusate sodium 100mg/10ml UD cup NG SCH (07:40)
[2022-05-16] MEDS: losartan 25mg tablet NG SCH (07:40)
[2022-05-16] MEDS: micafungin inj 100 MG in normal saline 100ml IV soln 100 ML IV SCH (07:40)
[2022-05-16] MEDS: nystatin 15 GM powder TP SCH ×2 (07:41→12:44)
[2022-05-16] MEDS: budesonide 0.5mg/2ml UD nebule IH SCH (08:09)
[2022-05-16] MEDS: ipratropium/albuterol 3ml nebule NEB SCH (08:09)
[2022-05-16] MEDS: piperacillin/tazo 3.375gm/50ml 50 ML IV SCH ×2 (08:34)
--- NOTE | 2022-05-16 13:26 | NUR ---
WOC NOTE: Per medical records, this is a 71-year-old female presented to the emergency department 05/10/22 chief complaint abdominal pain associated with nausea. Admit for further workup which revealed small bowel obstruction secondary to a mid-ventral pelvic wall hernia, extending to the right of the midline. She was taken to surgery by Dr. Riggs and underwent an expiratory laparotomy with repair of 2 hernias. She was admitted to ICU and intubated for acute respiratory failure, septic shock, lactic acidosis. Went back to surgery 05/14/2022 and patient found to have another segment of necrotic bowel that was resected. NPWT that is in place at this time is managed by the surgeon. The plan was to have another surgery but family has opted for comfort care measures per primary RN. Nurse further reports there are no skin issues at this time and the pt is comfortable. WOC will not need to follow. Handed care off to primary nurse.
--- NOTE | 2022-05-16 13:43 | NUR ---
Decision by family to make patient comfort care. Family gathering at bedside to say goodbye.
[2022-05-16] MEDS ORDERED: LORazepam 2 mg/ml vial IV PRN ×2 (14:40→17:05)
[2022-05-16] MEDS: morphine 10mg/ml inj. IV PRN ×6 (16:07→17:58)
--- NOTE | 2022-05-16 16:15 | NUR ---
Pt extubated & gtts stopped per comfort care orders. Family @ bedside.
--- NOTE | 2022-05-16 18:07 | NUR ---
RN IS TO DOCUMENT YES TO ALL APPLICABLE AREAS Pronouncement of : 1. Time Physician Notified: Dr. Mcclure 2. Date of : 05/16/22 3. Time of : 1805 4. DNR/Withdraw life support documented: Yes 5. Monitor strip has been placed on chart: Yes 6. Assessment process is of one-minute duration and includes following criteria: a) Patient is unresponsive to all stimuli: Yes b) Pupils fixed and non-reactive: Yes c) Auscultation of precordium reveals absence of heart tones: Yes d) Auscultation of lungs reveals absence of breath sounds: Yes e) Absence of blood pressure / all vital signs: Yes f) QRS complexes are not present on monitor / EKG strip: Yes g) Pacer spikes without capture: N/A 4. Comments:
[2022-05-17] MEDS ORDERED: VANCOmycin 1250MG/NS 250ml Bag 250 ML IV SCH
[2022-05-19] MEDS ORDERED: VANCOMYCIN LEVEL IV ONE (23:30)
== END 2022-05-16 18:06 | DRG 853 ==
LOC: ER 19:54 → ED HOLD 23:29 → ORTHO 4S 05-11 01:31 → CICU 2S 05-11 10:48
PROVIDERS: ADMIT Family Medicine; ATTEND Internal Medicine
PROC: BW211ZZ Computerized Tomography (CT Scan) of Abdomen and Pelvis using Low Osmolar Contrast (ICD-10-PCS; 2022-05-10)
PROC: BN251ZZ Computerized Tomography (CT Scan) of Facial Bones using Low Osmolar Contrast (ICD-10-PCS; 2022-05-10)
PROC: 0D9670Z Drainage of Stomach with Drainage Device, Via Natural or Artificial Opening (ICD-10-PCS; 2022-05-10)
PROC: 0BH17EZ Insertion of Endotracheal Airway into Trachea, Via Natural or Artificial Opening (ICD-10-PCS; 2022-05-11)
PROC: 0WQF0ZZ Repair Abdominal Wall, Open Approach (ICD-10-PCS; 2022-05-11)
PROC: 0WPF0JZ Removal of Synthetic Substitute from Abdominal Wall, Open Approach (ICD-10-PCS; 2022-05-11)
PROC: 5A1955Z Respiratory Ventilation, Greater than 96 Consecutive Hours (ICD-10-PCS; principal; 2022-05-11 10:21)
PROC: 0DB80ZZ Excision of Small Intestine, Open Approach (ICD-10-PCS; 2022-05-12)
PROC: 5A1D90Z Performance of Urinary Filtration, Continuous, Greater than 18 hours Per Day (ICD-10-PCS; 2022-05-13)
PROC: 0DBB0ZZ Excision of Ileum, Open Approach (ICD-10-PCS; 2022-05-14)
PROC: 5A1D90Z Performance of Urinary Filtration, Continuous, Greater than 18 hours Per Day (ICD-10-PCS; 2022-05-14)
PROC: 0DB80ZZ Excision of Small Intestine, Open Approach (ICD-10-PCS; 2022-05-14)
PROC: 5A1D90Z Performance of Urinary Filtration, Continuous, Greater than 18 hours Per Day (ICD-10-PCS; 2022-05-15)
PROC: 5A1D90Z Performance of Urinary Filtration, Continuous, Greater than 18 hours Per Day (ICD-10-PCS; 2022-05-16)
DX: A41.9 Sepsis, unspecified organism (principal); I50.33 Acute on chronic diastolic (congestive) heart failure; J96.20 Acute and chronic respiratory failure, unspecified whether with hypoxia or hypercapnia; K55.069 Acute infarction of intestine, part and extent unspecified; R65.21 Severe sepsis with septic shock; N17.0 Acute kidney failure with tubular necrosis; K72.00 Acute and subacute hepatic failure without coma; K43.6 Other and unspecified ventral hernia with obstruction, without gangrene; Z68.43 Body mass index [BMI] 50.0-59.9, adult; E87.20 Acidosis, unspecified; D68.9 Coagulation defect, unspecified; Z66 Do not resuscitate; Z51.5 Encounter for palliative care; E66.01 Morbid (severe) obesity due to excess calories; D35.01 Benign neoplasm of right adrenal gland; D35.02 Benign neoplasm of left adrenal gland; E86.1 Hypovolemia; E88.09 Other disorders of plasma-protein metabolism, not elsewhere classified; G89.4 Chronic pain syndrome; I11.0 Hypertensive heart disease with heart failure; I48.0 Paroxysmal atrial fibrillation; I25.10 Atherosclerotic heart disease of native coronary artery without angina pectoris; B96.6 Bacteroides fragilis [B. fragilis] as the cause of diseases classified elsewhere; R34 Anuria and oliguria; D69.6 Thrombocytopenia, unspecified; K57.30 Diverticulosis of large intestine without perforation or abscess without bleeding; J44.9 Chronic obstructive pulmonary disease, unspecified; K21.9 Gastro-esophageal reflux disease without esophagitis; E16.2 Hypoglycemia, unspecified; K76.0 Fatty (change of) liver, not elsewhere classified; L30.9 Dermatitis, unspecified; Z79.01 Long term (current) use of anticoagulants; Z82.49 Family history of ischemic heart disease and other diseases of the circulatory system; Z83.3 Family history of diabetes mellitus; Z88.6 Allergy status to analgesic agent; Z99.81 Dependence on supplemental oxygen; Z88.8 Allergy status to other drugs, medicaments and biological substances; Z56.0 Unemployment, unspecified; Z79.899 Other long term (current) drug therapy; Z71.3 Dietary counseling and surveillance
CPT/HCPCS: 36000; 36415; 36430; 36600; 70487; 71045; 74018; 74177; 80048; 80053; 80061; 80069; 80162; 80202; 81001; 82550; 82803; 82948; 83036; 83605; 83690; 83735; 83880; 84100; 84132; 84134; 84145; 84443; 84478; 84484; 85007; 85008; 85018; 85025; 85027; 85379; 85384; 85610; 85730; 86870; 86885; 86900; 86901; 86902; 86905; 86920; 86922; 87040; 87070; 87077; 87081; 87088; 87185; 88302; 88307; 93005; 94002; 94003; 94640; 94760; 94799; 99285; A4615; A4618; A5200; A6213; A6258; A6449; A7000; A7015; A7526; A9900; C1751; C1752; C1758; C9113; G0378; J0282; J0694; J1160; J1200; J1644; J2060; J2248; J2250; J2270; J2274; J2405; J2543; J2704; J2920; J2930; J3010; J3370; J3480; J3490; J7030; J7040; J7050; J7060; J7120; P9012; P9016; P9035; P9045; P9047; Q9967